=== PATIENT | female | born 1945 | race Caucasian/White ===

== ENCOUNTER 2017-10-07 13:44 | Outpatient (CLI) | payer MEDICARE | END 2017-10-07 13:45 | disposition home or self-care (01) | LOC: BICMAMMO 13:44 | PROVIDERS: ATTEND Obstetrics & Gynecology | DX: Z12.31 Encounter for screening mammogram for malignant neoplasm of breast (principal); R92.1 Mammographic calcification found on diagnostic imaging of breast; Z85.3 Personal history of malignant neoplasm of breast | CPT/HCPCS: 77063; 77067 ==

== ENCOUNTER 2017-11-12 08:40 | Outpatient (CLI) | payer MEDICARE ==
--- NOTE | 2017-11-12 11:33 | CT ---
CONTRAST ENHANCED CTA OF NECK: HISTORY: Primary hypertension, atherosclerotic disease. Patient with a history of carotid bruit. FINDINGS: Contrast-enhanced CTA of carotid arteries performed. Two-D and 3D reconstructed images performed on an independent 3D work station. 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 This forms a vascular sling which has the right subcla vian artery pass posterior to the esophagus and trachea between these structures and the thoracic spi ne. The right subclavian artery then travels laterally. The right and left common carotid arteries have a common origin. There is some atherosclerotic plaqu e in the origin of the left CCA. Mild but not significant degree of calcification is seen along the course of the left CCA. There is atherosclerotic plaque in the origin of the left ICA approximately 20-30%, but no evidence of high-grade left ICA disease. The right common carotid artery is patent without evidence of significant disease. There is an area of high-grade stenosis approximately 80-90% in the proximal portion of the right ICA. Flow is seen, however, distally in the right ICA extending intracranially. The left subclavian artery has origin from the aortic arch. This left subclavian artery is densely c alcified and either completely occluded or nearly so due to the extensive proximal left subclavian or igin calcifications. Flow is seen in the distal left subclavian artery. There may be occlusion of t he left vertebral artery as contrast is not seen in the proximal portion. In the distal aspect of th e left vertebral artery, contrast is present. Good flow is seen in the right vertebral artery, which is clearly patent. Also noted are extensive vascular calcifications in the left anterior descending coronary artery. Th e patient has had a previous sternotomy and CABG with flow present in the transferred SAMAYOA artery. IMPRESSION: 1. High-grade proximal right ICA stenosis. 2. High-grade or occluded left subclavian artery. 3. 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 4. Findings suggesting occlusion of the left vertebral artery. POS: [facility]
[2017-11-12] MEDS ORDERED: Iopamidol 370 76% 100 ML VIAL ONE (11:40)
== END 2017-11-12 08:41 | disposition home or self-care (01) ==
LOC: CT 08:40
PROVIDERS: ATTEND Internal Medicine Cardiovascular Disease
DX: I65.21 Occlusion and stenosis of right carotid artery (principal); I74.2 Embolism and thrombosis of arteries of the upper extremities; I25.119 Atherosclerotic heart disease of native coronary artery with unspecified angina pectoris; I10 Essential (primary) hypertension
CPT/HCPCS: 70498; 82565

== ENCOUNTER 2017-11-27 05:46 | Day surgery (SDC) | payer MEDICARE ==
[2017-11-26 11:22] VITALS: BMI 39.6
[2017-11-27] MEDS ORDERED: Lidocaine 1% (PF) 30 ML VIAL ONE (07:35)
[2017-11-27] MEDS ORDERED: Fentanyl 100 MCG/2 ML VIAL ONE (08:13)
[2017-11-27] MEDS ORDERED: Midazolam HCl 2 mg/2 ml Vial ONE (08:13)
[2017-11-27] MEDS ORDERED: Iopamidol 370 76% 100 ML VIAL ONE (15:31)
== END 2017-11-27 12:20 | disposition home or self-care (01) ==
LOC: CCL 05:46
PROVIDERS: ATTEND Internal Medicine Cardiovascular Disease
DX: I25.118 Atherosclerotic heart disease of native coronary artery with other forms of angina pectoris (principal); I10 Essential (primary) hypertension; I65.23 Occlusion and stenosis of bilateral carotid arteries; Z79.899 Other long term (current) drug therapy; Z79.82 Long term (current) use of aspirin; Z88.8 Allergy status to other drugs, medicaments and biological substances
CPT/HCPCS: 93459; 93567; C1769; 99152; 99153; J1644; J2001; J2250; J3010

== ENCOUNTER 2017-12-29 09:49 | Outpatient (CLI) | payer MEDICARE ==
[2017-12-29 11:40] LABS: Hemoglobin 15.6 g/dL (12.0-16.0); Mean Corpuscular HGB CONC 32.9 g/dL (32.0-36.0); Mean Corpuscular Volume 84.9 fL (78.0-98.0); Mean Platelet Volume 8.7 fL (7.4-10.4); Platelet Count 150 thou/uL (130-400); RBC Distribution Width 13.3 % (11.5-14.5); Red Blood Cell (RBC) Count 5.59 mill/uL (4.20-5.40); White Blood Cell (WBC) Count 5.8 thou/uL (4.8-10.8)
== END 2017-12-29 09:50 | disposition home or self-care (01) ==
LOC: LABBT 09:49
PROVIDERS: ATTEND Thoracic Surgery (Cardiothoracic Vascular Surgery)
DX: Z01.818 Encounter for other preprocedural examination (principal); I65.29 Occlusion and stenosis of unspecified carotid artery
CPT/HCPCS: 85027; 93005; 93010

== ENCOUNTER 2017-12-29 10:30 | Inpatient (IN) | payer MEDICARE ==
[2017-12-30] MEDS ORDERED: CEFAZOLIN/Water 2 GM/20 ML SYRINGE ONE (06:09)
[2017-12-30] MEDS ORDERED: Bupivacaine HCl 0.25%/Epi 0.0005/PF 10 ML VIAL FS ONE (06:25)
[2017-12-30] MEDS ORDERED: Heparin 5,000 UNITS/ML VIAL ONE (06:25)
[2017-12-30] MEDS ORDERED: Protamine Sulfate 50 MG/5 ML VIAL ONE (06:25)
[2017-12-30] MEDS ORDERED: Fentanyl 100 MCG/2 ML VIAL ONE (06:43)
[2017-12-30] MEDS ORDERED: Phenylephrine HCL 10 MG/ML VIAL ONE (06:44)
[2017-12-30 07:06] LABS: Anion Gap 14 mmol/L (10-20); BUN (Urea Nitrogen) 16 mg/dL (9.8-20.1); Calc. Creatinine Clearance 107 mL/min (70-130); Calcium 10.1 mg/dL (7.8-10.44); Carbon Dioxide 28 mmol/L (23-31); Chloride 100 mmol/L (98-107); Estimated GFR-MDRD 71; Glucose 110 mg/dL (83-110); Potassium 3.9 mmol/L (3.5-5.1); Sodium 138 mmol/L (136-145)
[2017-12-30] MEDS ORDERED: Ondansetron HCl/PF 4 MG/2 ML Vial IVP PRN ×2 (09:11→11:57)
[2017-12-30] MEDS ORDERED: Promethazine HCl 25 MG/ML VIAL SLOW IVP PRN (09:11)
[2017-12-30] MEDS ORDERED: Promethazine HCl 25 MG/ML VIAL IM PRN ×2 (09:11→11:57)
[2017-12-30] MEDS ORDERED: Acetaminophen 325 MG TAB PO PRN (11:57)
[2017-12-30] MEDS ORDERED: Fentanyl 100 MCG/2 ML VIAL SLOW IVP PRN (11:57)
[2017-12-30] MEDS ORDERED: hydrALAZINE 20 MG/ML VIAL SLOW IVP PRN (11:57)
[2017-12-30] MEDS ORDERED: Sodium Chloride 0.9% 1,000 ML IV SCH (11:57)
[2017-12-30] MEDS ORDERED: Phenylephrine 10 MG/NS 250 ML 250 ML IVPB PRN (11:57)
[2017-12-30] MEDS ORDERED: HYDROcodone/Acetaminophen 5/325 mg Tablet PO PRN ×2 (11:57)
[2017-12-30] MEDS ORDERED: cloNIDine 0.2 MG TAB PO PRN (11:57)
[2017-12-30] MEDS ORDERED: niCARdipine HCl 25 MG in Sodium Chloride 0.9% 250 ML 240 ML IVPB PRN (11:57)
[2017-12-30] MEDS ORDERED: Hydrochlorothiazide 25 MG TAB PO SCH (12:15)
[2017-12-30] MEDS ORDERED: Lisinopril 20 MG TAB PO SCH ×2 (12:15→21:00)
[2017-12-30] MEDS ORDERED: Clopidogrel Bisulfate 75 MG TAB PO SCH (12:15)
[2017-12-30 12:42] VITALS: BMI 39.1
[2017-12-30] MEDS: CEFAZOLIN/Water 2 GM/20 ML SYRINGE SLOW IVP SCH ×2 (14:32→22:38)
[2017-12-30] MEDS ORDERED: Ondansetron HCl/PF 4 MG/2 ML Vial ONE (19:53)
[2017-12-30] MEDS ORDERED: PROPOFOL 200 MG/20 ML VIAL ONE (19:53)
[2017-12-30] MEDS ORDERED: Heparin 10,000 UNITS/ 10 ML VIAL ONE (19:53)
[2017-12-30] MEDS ORDERED: Lidocaine 1% PF 5 ML VIAL ONE (19:53)
[2017-12-30] MEDS ORDERED: Dexamethasone 20 MG/5 ML VIAL ONE (19:53)
[2017-12-30] MEDS ORDERED: Vecuronium 10 MG VIAL ONE (19:53)
[2017-12-30] MEDS ORDERED: Glycopyrrolate 0.2 MG/ML 5 ML SYRINGE ONE (19:53)
[2017-12-31] MEDS: CEFAZOLIN/Water 2 GM/20 ML SYRINGE SLOW IVP SCH (05:34)
[2017-12-31 07:10] VITALS: TEMP 97.8
[2017-12-31 07:23] VITALS: BP 142/62
--- NOTE | 2017-12-31 07:49 | DIS ---
DATE OF DISCHARGE: 12/31/2017 HOSPITAL COURSE: The patient was admitted on 12/30/2017 and underwent a right carotid endarterectomy . Postoperative course was uneventful. She will be discharged home to follow up with me in 2 weeks with anticipation for a left carotid subclavian bypass at that time. Discharge and followup instruct ions have been given.
[2017-12-31] MEDS ORDERED: Hydrochlorothiazide 25 MG TAB PO SCH (09:00)
[2017-12-31] MEDS ORDERED: Clopidogrel Bisulfate 75 MG TAB PO SCH (09:00)
--- NOTE | 2018-01-01 10:10 | OP ---
DATE OF PROCEDURE: 12/30/2017 PREOPERATIVE DIAGNOSIS: Right carotid stenosis. PROCEDURE PERFORMED: Right carotid endarterectomy with bovine patch angioplasty. SURGEON: Mason Lee M.D. ANESTHESIA: General. ESTIMATED BLOOD LOSS: Less than 50. PROCEDURE IN DETAIL: After adequate anesthesia had been obtained, ultrasound was used to locate the carotid bulb and the patient was then prepped and draped. The incision was then made and sternocleid omastoid muscle rotated laterally. Common internal and external carotid arteries were identified. T he patient was given 7500 units of heparin and ACT levels were adequate. Following this, the patient had clamps applied following which the shunt was placed and endarterectomy was performed. After goo d tapering distally, the area was thoroughly irrigated and a bovine pericardial patch was used to darrell se the arteriotomy. Prior to completing the suture line, the shunt was removed, vessels back flushed and forward flushed and flow restored up the external and then internal carotid artery. Heparin was partially reversed with protamine and after obtaining good hemostasis, the wound was irrigated and c losed in layers. The patient is to be taken to the ICU in guarded condition.
== END 2017-12-31 08:45 | disposition home or self-care (01) | DRG 39 ==
LOC: SURG A 12-30 05:35 → CCU 12-30 13:26
PROVIDERS: ADMIT Thoracic Surgery (Cardiothoracic Vascular Surgery); ATTEND Thoracic Surgery (Cardiothoracic Vascular Surgery)
PROC: 03CH0ZZ Extirpation of Matter from Right Common Carotid Artery, Open Approach (ICD-10-PCS; principal; 2017-12-30)
PROC: 03UH0KZ Supplement Right Common Carotid Artery with Nonautologous Tissue Substitute, Open Approach (ICD-10-PCS; 2017-12-30)
DX: I65.21 Occlusion and stenosis of right carotid artery (principal); I10 Essential (primary) hypertension; I25.10 Atherosclerotic heart disease of native coronary artery without angina pectoris; E78.2 Mixed hyperlipidemia; Z79.82 Long term (current) use of aspirin; Z79.899 Other long term (current) drug therapy; Z95.1 Presence of aortocoronary bypass graft; Z96.653 Presence of artificial knee joint, bilateral
CPT/HCPCS: 80048; 85027; 93005; 93010; J1100; J1642; J1644; J2001; J2370; J2405; J2704; J2720; J3010

== ENCOUNTER 2018-02-02 06:12 | Inpatient (IN) | payer MEDICARE ==
[2018-02-02] MEDS ORDERED: CEFAZOLIN/Water 2 GM/20 ML SYRINGE ONE (06:21)
[2018-02-02] MEDS ORDERED: Protamine Sulfate 50 MG/5 ML VIAL ONE (06:28)
[2018-02-02] MEDS ORDERED: Heparin 5,000 UNITS/ML VIAL ONE (06:28)
[2018-02-02 06:46] LABS: #Eosinphils 0.3 thou/uL (0.0-0.7); #Lymphocytes 1.2 thou/uL (1.20-3.40); #Monocytes 0.3 thou/uL (0.11-0.59); #Neutrophils 2.4 thou/uL (1.40-6.50); %Basophils 0.9 % (0.0-1.0); %Eosinophils 7.7 % (0.0-10.0); %Lymphocytes 27.8 % (21.0-51.0); %Monocytes 7.5 % (0.0-10.0); %Neutrophils 56.2 % (42.0-75.0); Hemoglobin 15.1 g/dL (12.0-16.0); Mean Corpuscular HGB CONC 33.3 g/dL (32.0-36.0); Mean Corpuscular Hemoglobin 28.5 pg (27.0-31.0); Mean Corpuscular Volume 85.5 fL (78.0-98.0); Mean Platelet Volume 7.5 fL (7.4-10.4); Platelet Count 235 thou/uL (130-400); RBC Distribution Width 13.2 % (11.5-14.5); Red Blood Cell (RBC) Count 5.28 mill/uL (4.20-5.40); White Blood Cell (WBC) Count 4.3 thou/uL (4.8-10.8)
[2018-02-02 07:05] LABS: Anion Gap 16 mmol/L (10-20); BUN (Urea Nitrogen) 12 mg/dL (9.8-20.1); Calc. Creatinine Clearance 103 mL/min (70-130); Calcium 9.6 mg/dL (7.8-10.44); Carbon Dioxide 23 mmol/L (23-31); Chloride 107 mmol/L (98-107); Estimated GFR-MDRD 71; Glucose 116 mg/dL (83-110); Potassium 3.9 mmol/L (3.5-5.1); Sodium 142 mmol/L (136-145)
[2018-02-02] MEDS ORDERED: Bupivacaine/Epinephrine 0.25% 30 ML VIAL ONE (07:06)
[2018-02-02] MEDS ORDERED: Ketamine 50 MG/ML VIAL ONE (07:22)
[2018-02-02] MEDS ORDERED: Fentanyl 100 MCG/2 ML VIAL ONE (07:23)
[2018-02-02] MEDS ORDERED: Ondansetron HCl/PF 4 MG/2 ML Vial IVP PRN ×2 (10:55→11:04)
[2018-02-02] MEDS ORDERED: Promethazine HCl 25 MG/ML VIAL IM PRN (10:55)
[2018-02-02] MEDS ORDERED: Promethazine HCl 25 MG/ML VIAL SLOW IVP PRN ×2 (10:55→11:04)
[2018-02-02] MEDS ORDERED: Nitroglycerin 50 MG/250 ML BOT 250 ML ONE (11:00)
[2018-02-02] MEDS ORDERED: Fentanyl 100 MCG/2 ML VIAL SLOW IVP PRN ×2 (11:04)
[2018-02-02] MEDS ORDERED: Acetaminophen 325 MG TAB PO PRN (11:04)
[2018-02-02] MEDS ORDERED: HYDROcodone/Acetaminophen 5/325 mg Tablet PO PRN ×2 (11:04)
[2018-02-02] MEDS ORDERED: niCARdipine HCl 25 MG in Sodium Chloride 0.9% 250 ML 240 ML IVPB PRN (11:04)
[2018-02-02] MEDS ORDERED: Phenylephrine 10 MG/NS 250 ML 250 ML IVPB PRN (11:04)
--- NOTE | 2018-02-02 11:06 | OP ---
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 . PROCEDURE: Left subclavian carotid bypass with 8 mm thin-walled ringed Micro-Trev. SURGEON: Mason Lee M.D. ANESTHESIA: General. ESTIMATED BLOOD LOSS: 150 mL. PROCEDURE IN DETAIL: After adequate anesthesia had been obtained, a shoulder roll was placed and loli browne was turned to the left, although she had rather stiff neck and shoulders and not much turning was a vailable. She was prepped and draped and a curvilinear incision was made about 1 cm cephalad to the clavicle. Platysma was divided as was the clavicular head of the sternocleidomastoid muscle. The latif perficial cutaneous skin nerve anterior to the scalene fat pad was partially divided. The scalene fa t pad was then mobilized and dissection was then carried down posterior to the jugular vein isolating the carotid artery, avoiding the vagus nerve. Following this, the anterior scalene muscle was ident ified and there was only one small nerve anterior to it and it was preserved, although did not appear to be the normal size of the phrenic nerve. The scalene muscle was then carefully divided exposing the subclavian artery. Following heparinization, clamps were applied to the carotid artery and an en d-to-side anastomosis with running 6-0 Prolene suture was performed to the side of the carotid artery with the Micro-Trev graft. Glue was then used on the suture line and vessels were flushed and flow re stored up the carotid. Graft was brought posterior to the jugular vein. Subclavian artery clamps we re applied, arteriotomy performed, and a running 6-0 Prolene suture was then used to perform the Micro -Trev to subclavian artery anastomosis using glue on this suture line too. Once flow was restored, he kacey was reversed, the patient had been given 7500 units of heparin initially. Oozing through the Micro-Trev needle holes persisted for about one half an hour and finally this was controlled. The scal steve fat pad was then laid back over the graft. Attempts at reapproximating the clavicular head of th e sternocleidomastoid muscle were unsuccessful. Platysma and subcutaneous tissue was then closed wit h a running Vicryl suture over a small [place] drain and the skin was closed. The patient tolerated the procedure.
[2018-02-02] MEDS ORDERED: niCARdipine HCl 25 MG in Sodium Chloride 0.9% 250 ML 240 ML IVPB SCH (11:15)
[2018-02-02] MEDS: Sodium Chloride 0.9% 1,000 ML IV SCH (12:45)
[2018-02-02 12:51] VITALS: BMI 37.7
[2018-02-02] MEDS: CEFAZOLIN/Water 2 GM/20 ML SYRINGE SLOW IVP SCH ×2 (13:43→21:54)
[2018-02-02] MEDS ORDERED: Metoprolol Tartrate 5 MG/5 ML VIAL ONE (13:52)
[2018-02-02] MEDS ORDERED: Glycopyrrolate 0.2 MG/ML 5 ML SYRINGE ONE (13:52)
[2018-02-02] MEDS ORDERED: Lidocaine 1% PF 5 ML VIAL ONE (13:52)
[2018-02-02] MEDS ORDERED: PROPOFOL 200 MG/20 ML VIAL ONE (13:52)
[2018-02-02] MEDS ORDERED: Ondansetron HCl/PF 4 MG/2 ML Vial ONE (13:52)
[2018-02-02] MEDS ORDERED: Dexamethasone 20 MG/5 ML VIAL ONE (13:52)
[2018-02-02] MEDS ORDERED: PHENYLEPHRINE-NS 100 MCG/ML 10 ML SYRINGE ONE (13:52)
[2018-02-02] MEDS ORDERED: Heparin 10,000 UNITS/ 10 ML VIAL ONE (13:52)
[2018-02-03] MEDS: CEFAZOLIN/Water 2 GM/20 ML SYRINGE SLOW IVP SCH (05:51)
--- NOTE | 2018-02-03 07:18 | DIS ---
HOSPITAL COURSE: The patient was admitted and underwent a left carotid subclavian bypass with 8-mm r ing into the Mikado-Trev graft. Postoperatively, she did well with some mild hypertension. She had a d rain left in at the time of surgery that was removed on the afternoon of surgery with a moderate amou nt of serosanguineous drainage. She had some moderate swelling in her supraclavicular area at the ti me of discharge. She had no complaints except a slight sore throat. She had a good radial pulse in her left wrist, which was not present preop. She will be discharged today to resume her aspirin, mag nesium, Zetia, CoQ10 as well as to begin lisinopril 10 b.i.d. No scripts have been written. Dischar ge and followup instructions were given.
[2018-02-03] MEDS: Sodium Chloride 0.9% 1,000 ML IV SCH (07:47)
[2018-02-03 08:01] VITALS: TEMP 98.5
[2018-02-03] MEDS ORDERED: Clopidogrel Bisulfate 75 MG TAB PO SCH (09:00)
== END 2018-02-03 08:35 | disposition home or self-care (01) | DRG 254 ==
LOC: SURG A 06:12 → CCU 12:55
PROVIDERS: ADMIT Thoracic Surgery (Cardiothoracic Vascular Surgery); ATTEND Thoracic Surgery (Cardiothoracic Vascular Surgery)
PROC: 03140JK Bypass Left Subclavian Artery to Left Extracranial Artery with Synthetic Substitute, Open Approach (ICD-10-PCS; principal; 2018-02-02)
DX: I70.8 Atherosclerosis of other arteries (principal); I25.10 Atherosclerotic heart disease of native coronary artery without angina pectoris; I10 Essential (primary) hypertension; E78.2 Mixed hyperlipidemia; Z79.02 Long term (current) use of antithrombotics/antiplatelets; Z79.82 Long term (current) use of aspirin; Z79.899 Other long term (current) drug therapy; Z95.1 Presence of aortocoronary bypass graft; Z96.653 Presence of artificial knee joint, bilateral
CPT/HCPCS: 36415; 80048; 85025; 86850; 86900; 86901; J1100; J1642; J1644; J2001; J2405; J2704; J2720; J3010; J7050

== ENCOUNTER 2018-04-01 14:32 | Observation (INO) | payer MEDICARE ==
--- NOTE | 2018-04-01 16:26 | CT ---
CT HEAD: Date: 04/01/18 HISTORY: Syncopal episode, dizziness, and headache. Tingling in legs. COMPARISON: None available. FINDINGS: There is no evidence of a hemorrhage, acute infarction, mass effect, or midline shift. A few subtle s cattered low density areas are seen in the periventricular white matter which are nonspecific but may be reflective of mild chronic small vessel ischemic changes. There is nonspecific punctate calcifica tion seen in the posterior right frontal lobe. There is no evidence of a hemorrhage, acute infarction , mass effect, or midline shift. The ventricular system is normal in size, shape, and position. Mucosal thickening is seen throughout the ethmoidal air cells and visualized bilateral maxillary antr a. Mastoid air cells are clear. Calvarial structures have a normal appearance. IMPRESSION: No acute intracranial abnormality is demonstrated. POS: [facility]
[2018-04-01 17:35] LABS: #Eosinphils 0.1 thou/uL (0.0-0.7); #Lymphocytes 1.2 thou/uL (1.20-3.40); #Monocytes 0.4 thou/uL (0.11-0.59); %Basophils 0.5 % (0.0-1.0); %Eosinophils 1.6 % (0.0-10.0); %Lymphocytes 13.4 % (21.0-51.0); %Monocytes 4.8 % (0.0-10.0); %Neutrophils 79.7 % (42.0-75.0); Hemoglobin 14.9 g/dL (12.0-16.0); Mean Corpuscular HGB CONC 32.4 g/dL (32.0-36.0); Mean Corpuscular Volume 86.5 fL (78.0-98.0); Mean Platelet Volume 8.3 fL (7.4-10.4); Platelet Count 238 thou/uL (130-400); RBC Distribution Width 12.4 % (11.5-14.5); Red Blood Cell (RBC) Count 5.32 mill/uL (4.20-5.40); White Blood Cell (WBC) Count 8.8 thou/uL (4.8-10.8)
[2018-04-01 18:00] LABS: ALT (SGPT) 29 U/L (8-55); AST (SGOT) 33 U/L (5-34); Albumin 4.1 g/dL (3.4-4.8); Alkaline Phosphatase 75 U/L (40-150); Anion Gap 15 mmol/L (10-20); BUN (Urea Nitrogen) 18 mg/dL (9.8-20.1); Bilirubin, Total 0.6 mg/dL (0.2-1.2); Calc. Creatinine Clearance 0 mL/min (70-130); Calcium 9.2 mg/dL (7.8-10.44); Carbon Dioxide 21 mmol/L (23-31); Chloride 106 mmol/L (98-107); Estimated GFR-MDRD 84; Globulin 3.7 g/dL (2.4-3.5); Glucose 106 mg/dL (83-110); Potassium 4.3 mmol/L (3.5-5.1); Protein, Total 7.8 g/dL (6.0-8.3); Sodium 138 mmol/L (136-145)
[2018-04-01 18:03] LABS: CKMB 1.2 ng/mL (0-6.6); Troponin I Less than 0.010 ng/mL (< 0.028)
[2018-04-01] MEDS ORDERED: Acetaminophen 325 MG TAB PO PRN (19:16)
[2018-04-01] MEDS ORDERED: Nitroglycerin 0.4 MG TAB (25 Tab Bottle) PO PRN (19:16)
[2018-04-01 19:30] VITALS: BMI 37.7
--- NOTE | 2018-04-01 19:44 | HP ---
DATE OF ADMISSION: 04/01/2018 PRIMARY CARE PHYSICIAN: Faby Aggarwal M.D. PRIMARY MATERIALS MANAGEMENT SUPERVISOR: Dr. Cyr. CHIEF COMPLAINT: Syncopal episode. HISTORY OF PRESENT ILLNESS: Patient is a 72-year-old female with coronary artery disease, status pos t CABG, hypertension, dyslipidemia, and carotid artery disease who presented to the emergency room af ter a syncopal episode earlier today while she was at home. The above episode happened around 1:30 p .m. She was sitting at that time. Without any warning, she lost consciousness for approximately a m inute or so. The witnessed the above event. Her bilateral lower extremity had some numbness and tingling during the above episode. She was diaphoretic and pale during the above episode. Afte r the episode, she regained consciousness without any confusion. She had some nausea that improved. Forty-five minutes later, she felt back to her baseline. No chest pain, palpitations, double vision , blurring of vision, facial asymmetry, weakness, numbness in one extremity more than the other repor dylan. Patient reported some headache during the above episode. Her checked her blood pressur e after the episode which was in 130s to 140s. PAST MEDICAL HISTORY: 1. Coronary artery disease, status post CABG in 2001 in [place]. 2. Hypertension. 3. Dyslipidemia. 4. Carotid artery stenosis. PAST SURGICAL HISTORY: Hysterectomy in 1971, cholecystectomy in 1988, mastectomy in 2004, CABG in 03 06, right knee replacement in 2012, left knee replacement in 2013, right carotid endarterectomy in . Recent left subclavian carotid bypass by Dr. Lee. ALLERGIES: Patient is allergic to STATINS. CURRENT HOME MEDICATIONS: Lisinopril 10 mg twice a day, aspirin 81 mg daily, Plavix 75 mg daily, Zet ia 10 mg q.p.m., Imdur 30 mg daily that was started 2 weeks ago. SOCIAL HISTORY: Patient currently lives at home with her . No smoking, alcohol or drug use. She is FULL CODE, makes her own decisions with the help of her family. REVIEW OF SYSTEMS: The following complete review of systems was negative, unless otherwise mentioned in the HPI or below: Constitutional: Weight loss or gain, ability to conduct usual activities. Sk in: Rash, itching. Eyes: Double vision, pain. ENT/Mouth: Nose bleeding, neck stiffness, pain, te nderness. Cardiovascular: Palpitations, dyspnea on exertion, orthopnea. Respiratory: Shortness of breath, wheezing, cough, hemoptysis, fever or night sweats. Gastrointestinal: Poor appetite, abdom inal pain, heartburn, nausea, vomiting, constipation, or diarrhea. Genitourinary: Urgency, frequenc y, dysuria, nocturia. Musculoskeletal: Pain, swelling. Neurologic/Psychiatric: Anxiety, depressio n. Allergy/Immunologic: Skin rash, bleeding tendency. FAMILY HISTORY: Positive for heart disease. PHYSICAL EXAMINATION: VITAL SIGNS: Temperature 97.5, respiration 18, pulse rate of 68, blood pressure 171/73 with O2 satur ation 98% on room air. GENERAL: A 72-year-old female in no apparent distress. Denies any chest pain. HEENT: Head atraumatic, normocephalic. Sclerae are anicteric. Moist mucous membrane, no oral lesio n. NECK: Supple, no JVD, no carotid bruit. LUNGS: Clear to auscultation bilaterally, no wheezing, rales or rhonchi. HEART: S1, S2 present. Regular rate and rhythm. No murmur, rubs, or gallops appreciated. ABDOMEN: Soft, nontender, bowel sounds present. EXTREMITIES: No edema or calf tenderness. MUSCULOSKELETAL: No joint swelling or tenderness. PERIPHERAL VASCULAR: Radial pulses palpable bilaterally and equal. NEUROLOGIC: Grossly nonfocal, moves all four extremities. PSYCHIATRIC: Alert, awake, oriented x3. LABORATORY AND X-RAY FINDINGS: Troponin negative. WBC 8.8 with hemoglobin 14.9, hematocrit 46, plat elet 238, BUN 18, creatinine 0.69. Chest x-ray by my review was negative for infiltrate. CT scan of the brain by my review was negative for acute findings. EKG by my review showed sinus rhythm with frequent PVCs and right bundle branch block. IMPRESSION: 1. Syncope, suspected cardiogenic. 2. Hypertension. 3. Coronary artery disease, status post coronary artery bypass graft. 4. Hyperlipidemia. 5. Statin allergy. 6. Chronic kidney disease stage 2. PLAN: The patient will be monitored on the telemetry unit. We will keep her n.p.o. past midnight. Continue aspirin, Plavix, Imdur and lisinopril. We will check orthostatic vitals in a.m. Gentle hyd ration. The patient had a cardiac catheterization in November of this year. We will obtain echocardiogr am if not done at Dr. Cyr's office. Plan of care was discussed with the patient in detail. She stated understanding.
[2018-04-01] MEDS: Lisinopril 10 MG TAB PO SCH (21:03)
[2018-04-01] MEDS: Ezetimibe 10 MG TAB PO SCH (21:03)
[2018-04-01 21:25] LABS: Troponin I Less than 0.010 ng/mL (< 0.028)
[2018-04-01] MEDS: Sodium Chloride 0.9% 1,000 ML IV SCH (22:35)
[2018-04-02 01:13] LABS: Troponin I Less than 0.010 ng/mL (< 0.028)
--- NOTE | 2018-04-02 07:42 | RAD ---
PORTABLE AP CHEST: Date: 04/01/18 HISTORY: Chest pain and syncopal episode. COMPARISON: None available. FINDINGS: Postsurgical changes related to CABG are noted. Cardiac silhouette is magnified by projection, but is probably mildly enlarged. The pulmonary vasculature is within normal limits. There is mild elevation of the left hemidiaphragm with minimal volume loss at the left lung base. The lungs are otherwise cl ear. Vascular calcifications seen in thoracic aorta. Degenerative changes noted of the spine. IMPRESSION: 1. No acute cardiopulmonary process. 2. Mild cardiomegaly without overt CHF. POS: [facility]
[2018-04-02] MEDS: Lisinopril 10 MG TAB PO SCH ×2 (09:46→20:21)
[2018-04-02] MEDS: Clopidogrel Bisulfate 75 MG TAB PO SCH (09:46)
[2018-04-02] MEDS: Ubidecarenone 50 MG CAP PO SCH (09:47)
[2018-04-02] MEDS: Sodium Chloride 0.9% 1,000 ML IV SCH (09:49)
[2018-04-02] MEDS ORDERED: Lidocaine 1% w/Epinephrine 1:100K 30 ML VIAL ONE (11:56)
--- NOTE | 2018-04-02 13:01 | ADD-CON ---
ADDENDUM DATE OF ADMISSION: 04/01/2018 DATE OF CONSULTATION: 04/02/2018 INDICATION FOR CONSULTATION: A 72-year-old female with syncope. HISTORY OF PRESENT ILLNESS: This is a very pleasant 72-year-old female who has undergone bypass surg kunal several years ago and had a repeat cardiac catheterization earlier this year and was found to hav e patent grafts. Her ejection fraction has been normal. She was sitting at home today in front of h er computer, she started feeling somewhat badly. She called her and by the time he got there , she ultimately had a syncopal episode. She was out for a couple minutes. When she woke up, she mcmahon d actually been having a headache. She arrived here, she has had no further significant bradycardias or other arrhythmias. She does have a right bundle branch block, which apparently is not new. Base d on these findings, she most likely will need to undergo a LINQ implant to determine whether or not she has had any other evidence or any other indication for these syncopal episodes. She appears to b e in sinus rhythm with the right bundle branch block and there has been no pauses noted on the EKG or the monitor since her admission. For the remainder of her past medical history, social history, family history, medications, and [facility], please refer to the note dictated by the nurse practitioner. PHYSICAL EXAMINATION: GENERAL: Reveals a well-developed, well-nourished female who is in no acute distress. She is alert and oriented, very pleasant lady. VITAL SIGNS: She is afebrile. Blood pressure is slightly elevated at 164/71, previous is 143/61, he art rate is in the 60s-70s, it shows sinus rhythm. Respiratory rate is 16. HEENT: Unremarkable. CHEST: Clear to auscultation without rales, rhonchi or wheezing. CARDIOVASCULAR: Exam reveals a regular rate and rhythm with normal S1, S2. I cannot hear an S3 nor an S4. There were no significant murmurs, heaves, thrills, bruits or rubs. ABDOMEN: Shows obesity with positive bowel sounds. No organomegaly or masses are noted. Femoral pu lses are present. There is no lower extremity edema. NEUROLOGIC: She appears to be fully intact at this time. SKIN: Warm and dry. I have explained to her the indication for the LINQ, the implantable loop devic e, a loop recorder and she is agreeable to proceed today. She has not eaten that we will proceed as soon as possible on this afternoon to put this device in and hopefully she can be discharged to home tomorrow. IMPRESSION AND PLAN: 1. Syncopal episode of uncertain etiology 2. Coronary artery disease, which appears to be stable. Her recent cardiac catheterization was unre markable. Her other problems include hypertension. We may need to readjust her medications. I have reviewed her medications. She is taking lisinopril, isosorbide for her blood pressure. She is also on Plavix and aspirin. We will continue these medications once the LINQ device is implanted and hop efully she will be able to be discharged tomorrow morning. I have explained to her the risks of the procedure to include some bleeding or infection, otherwise there were no other significant complicati ons associated with implantation of the LINQ device.
--- NOTE | 2018-04-02 13:29 | PDOC.EVN ---
Event Note - Event Note Event Note: Pt seen and examined with Jennifer Han PA-C. I have seen and evaluated the pateint and reviewed all documentations. I agree with the findings and plan as outlined in his note admitted with short spell of unresponsiveness, suspect arrhythmia. seen by VERNA Faulkner to be implanted tomorrow and plan to discharge in AM
--- NOTE | 2018-04-02 14:47 | PDOC.PN ---
- Subjective Encounter Start Date: 04/02/18 Encounter Start Time: 14:45 Patient here for syncope, history of CAD s/p CABG and HTN. She denies chest pain or shortness of breath at this time. Cardiology services following and plan for LINQ, but no further changes to medications at this time. - Objective Resuscitation Status: Resuscitation Status FULL:Full Resuscitation MAR Reviewed: Yes Vital Signs & Weight: Vital Signs (12 hours) Temp Pulse Resp BP BP BP BP 04/02/18 13:06 97.6 F 59 L 18 148/67 H 04/02/18 11:22 98.2 F 64 20 186/84 H 04/02/18 07:25 98.3 F 65 16 178/77 H 169/78 H 164/71 H 04/02/18 04:12 98.1 F 72 18 138/63 Pulse Ox 04/02/18 13:06 93 L 04/02/18 11:22 94 L 04/02/18 07:25 95 04/02/18 04:12 93 L Weight Admit Weight 226 lb 12.8 oz Weight 226 lb 12.8 oz I&O: 04/01/18 04/02/18 04/03/18 06:59 06:59 06:59 Intake Total 360 Output Total 900 Balance -900 360 Result Diagrams: 04/01/18 17:22 04/01/18 17:22 Radiology Reviewed by me: Yes EKG Reviewed by me: Yes Phys Exam - Physical Examination Constitutional: NAD HEENT: PERRLA, moist MMs, sclera anicteric, oral pharynx no lesions, 2+ tonsils Neck: no nodes, no JVD, supple Respiratory: no wheezing, no rales, no rhonchi, clear to auscultation bilateral Cardiovascular: RRR, no significant murmur, no rub Gastrointestinal: soft, non-tender, no distention, positive bowel sounds Musculoskeletal: no edema, pulses present Neurological: non-focal, normal sensation, moves all 4 limbs Lymphatic: no nodes Psychiatric: normal affect, A&O x 3 Skin: no rash, normal turgor, cap refill <2 seconds Dx/Plan (1) CAD (coronary artery disease) Code(s): I25.10 - ATHSCL HEART DISEASE OF [place] CORONARY ARTERY W/O ANG PCTRS Status: Acute (2) Syncopal episodes Code(s): R55 - SYNCOPE AND COLLAPSE Status: Acute (3) Hypertension Code(s): I10 - ESSENTIAL (PRIMARY) HYPERTENSION Status: Acute (4) Chronic kidney disease (CKD) Code(s): N18.9 - CHRONIC KIDNEY DISEASE, UNSPECIFIED Status: Acute - Plan cont current plan of care, plan discussed w/ family, DVT proph w/SCDs * Cardiology services following with history of CAD and CABG. Will plan LINQ placement. * Continue ASA and plavix * Continue other home medications including imdur and lisinopril for BP control * Likely discharge tomorrow
--- NOTE | 2018-04-02 14:49 | CON ---
CARDIOLOGY CONSULTATION DATE OF CONSULTATION: 04/02/2018 PRIMARY CARE PHYSICIAN: Faby Aggarwal M.D. PRIMARY BOILER MAKER: Arnulfo Cyr MD REFERRING PHYSICIAN: Romeo Villasenor M.D. REASON FOR CARDIOLOGY CONSULTATION: History of syncope. HISTORY OF PRESENT ILLNESS: Ms. Beck is a 72-year-old female with a significant history o f coronary artery disease with history of CABG x2 in 2010, hypertension, hyperlipidemia. The patient presents to the emergency department for syncopal episode at home for about 5 minutes while she was using a computer in the chair around 1:30 p.m. on April 01, 2018. Prior to that episode, the patie nt started having severe headache and after waking up, she noticed that she has severe tingling to th e bilateral lower extremities. Prior that episode, she never has similar symptoms, headache, dizzine ss, lightheadedness, shortness of breath, or any cardiac complaints. 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 The patient had history of coronary artery disease with CABG x2 in 2010. Patient had echocardiogram done in November 2017 with EF of 60% to 65%, grade I diastolic dysfunction, mild tricuspid regurgitation and mild mitral valve regurgitation. The patient has cardiac catheterization done in November 2017, whic h shows patent CABG graft and also showing the patient had a left subclavian occlusion and status pos t left subclavian bypass in November 2017. The patient has the right carotid endarterectomy in November [address] Lee. The left carotid and subclavian bypass was done in January 2018. PAST MEDICAL HISTORY: Hypertension, hyperlipidemia, gag reflex, coronary artery disease. She has le ft breast cancer in 2011. PAST SURGICAL HISTORY: CABG x4 in 2010, left subclavian and carotid bypass by Dr. Lee in February 01, total hysterectomy, left mastectomy, cholecystectomy, bilateral knee replacements. FAMILY HISTORY: Patient's father due to myocardial infarction at age of 73. Other than pedro t the patient does not have any significant cardiac related medical history per family. SOCIAL HISTORY: Patient is , retired. She is being active at the farm every day. She has 3 children total, one of the child at the age of 6 months due to congenital problem. Two othe r children are healthy and living well. The patient denies ETOH, smoking or illicit drug abuse. She drinks tea once a while, she does not drink any caffeinated drink. REVIEW OF SYSTEMS: A 12-point review of systems was negative, unless otherwise mentioned in HPI or b elow. The patient denied blood in the stool or urine. She has chronic shortness of breath; however, after the patient underwent a CABG in 2010, the patient's shortness of breath improved. Also patient's reports that the patient snores, but does not stop breathing. The patient hoyt s not have apnea. PHYSICAL EXAMINATION: VITAL SIGNS: Orthostatic blood pressure supine 164/71, sitting 178/77, standing 169/78, pulse is 65 and in sinus rhythm, temperature 98.3, respiratory rate 16, O2 sat 95% on room air. GENERAL: The patient is alert, oriented x4, not in acute distress. HEAD: Normocephalic, atraumatic. EYES: Extraocular muscle movements are intact. ENT and MOUTH: Oral and nasal mucosa are moist without lesion. NECK: Supple. She has a healed scar to the right neck. No JVP. RESPIRATORY: Lungs are clear to auscultation bilaterally. CARDIOVASCULAR: Regular rhythm and rate. Normal S1, S2. There are no S3 or S4. Carotid pulses are present. Pulses in bilateral radial and bilateral lower extremities are present without bruit or th rill. No edema in the bilateral lower extremities. ABDOMEN: Nontender or mass to palpate. Bowel sounds are present. SKIN: Warm and dry. No bruise, , or lesion noted. MUSCULOSKELETAL: Patient able to move all extremities without difficulties. PSYCHIATRIC: Patient is alert and oriented x4, nonfocal. Mood is pleasant. LABORATORY DATA: WBC 8.8, hemoglobin 14.9, hematocrit 46.0, platelets of 238. Sodium 138, potassium 4.3, BUN 18, creatinine 1.68. AST 33, ALT 29. CK-MB 1.2. Troponin is negative x3. TSH 0.9243 and the patient's total cholesterol was 245, triglyceride 222. HDL 47, LDL 154. ALLERGIES: She is allergic to STATINS which cause severe nausea. HOME MEDICATIONS: CoQ10 200 mg once a day, omega 3 one capsule every day, vitamin C 500 every day, Zetia 10 mg once a d ay, Plavix 75 mg once a day, aspirin 81 mg once a day, lisinopril 10 mg twice a day, isosorbide monon itrate 30 mg once a day, Tumeric 1 tablet once a day, flaxseed 1 tablet once a day, magnesium 250 mg once a day. CT scan of brain showed no acute intracranial abnormalities. Chest x-ray showed no acute cardiopulmo nary process, mild cardiomegaly without overt CHF. ASSESSMENT AND PLAN: 1. Syncopal episode since the patient's CT brain, recent echocardiogram, and cardiac catheterization results are normal. The patient is going to undergo LINQ placement by Dr. Vaughan today. 2. Coronary artery main coronary artery disease with history of CABG x4 in 2010. The patient's cond ition is stable at this moment. We would like to continue current medication and continue to monitor on the telemetry. 3. Hypertension. The patient's blood pressure is elevated at this moment. We would like to adjust the medication as appropriate. 4. Hyperlipidemia. The patient's LDL in November 2017, was 154 due to history of coronary artery diseas e. The patient's LDL is supposed to be less than 70. Since the patient is allergic to STATIN medica tion, possible injectable cholesterol medication is suitable for this patient. We would like to defe r the decision to Dr. Cyr as outpatient. 5. History of right carotid endarterectomy and subclavian bypass to the left side. The patient's co ndition is stable at this moment. We would like to continue to monitor. Thank you very much for allowing the Cardiology service to participate in care of this patient. We w ill follow along the patient's care team and make further recommendations as appropriate.
[2018-04-02] MEDS: Ezetimibe 10 MG TAB PO SCH (20:21)
[2018-04-03 04:20] VITALS: TEMP 97.7
[2018-04-03] MEDS: Lisinopril 10 MG TAB PO SCH (08:20)
[2018-04-03] MEDS: Clopidogrel Bisulfate 75 MG TAB PO SCH (08:20)
[2018-04-03] MEDS: Ubidecarenone 50 MG CAP PO SCH (08:20)
--- NOTE | 2018-04-03 08:26 | PDOC.CTH ---
Cardiology Progress Note - Subjective The pt seen and examined. No overnight events. No cardiac complaints. - Objective Vital Signs Temp Pulse Resp BP Pulse Ox 04/03/18 07:51 97.7 F 72 18 155/74 H 93 L 04/03/18 04:18 97.7 F 65 18 133/64 95 04/02/18 23:38 97.9 F 66 15 160/70 H 94 L Admit Weight 226 lb 12.8 oz Weight 226 lb 12.8 oz 04/02/18 04/03/18 04/04/18 06:59 06:59 06:59 Intake Total 540 Output Total 900 1900 Balance -900 -1360 - Physical Examination General/Neuro: alert & oriented x3 Neck: no JVD present Heart: RRR Abdomen: soft Extremities: other: (No edema) - Telemetry Telemetry Rhythm: SB-SR 50-60s - Labs Result Diagrams: 04/01/18 17:22 04/01/18 17:22 Troponin/CKMB CK-MB (CK-2) 1.2 ng/mL (0-6.6) 04/01/18 17:22 Troponin I Less than 0.010 ng/mL (< 0.028) 04/02/18 00:22 - Assessment/Plan 1. S/p Syncopal episode with S/p LINQ placement on 04/02/18 - The site is CALVIN with SSS, no drainage or erythema. The pt denied any discomfort to the site. 2. CAD with hx of CABG x4 in 2010 - stable; on ASA and JOSE, but no BBlocker due to bradycarida; No statin due to allergy 3. HTN - stable 4. S/p Rt CEA in 11/2017 - 5. Lt Carodi-Subclavian bypass in 01/2018 - 6. Hyperlipidemia - LDL in 11/2017 was 154; Allegic to Statin; may start PCSK9 inhibitor as outpt. Defer to PCP/Dr Ger HARDY reviewed * From Cardiac standpoint, the pt is stable to D/c home. The pt will F/u with Dr Cyr's office within 10 days for site check and Hospital f/u. Review of Systems - Review of Systems Constitutional: reports: no symptoms reported EENTM: reports: no symptoms reported Respiratory: reports: no symptoms reported Cardiac (ROS): reports: no symptoms reported ABD/GI: reports: no symptoms reported : reports: no symptoms reported Musculoskeletal: reports: no symptoms reported Skin: reports: no symptoms reported
[2018-04-03 10:24] VITALS: BP 144/69
--- NOTE | 2018-04-03 15:37 | CCL ---
DATE OF PROCEDURE: 04/02/18 INDICATION FOR PROCEDURE: A 72-year-old female with syncope of undetermined etiology. She was advised to undergo an implantable loop recorder. This was performed today without difficulti es or complications. It was implanted after she was given some local lidocaine for anesthesia. She had good sensing on the device and she was implanted with the device. This is a Linq from [employer]. We will continue to monitor the patient transtelephonically. POS: YAHAIRA
--- NOTE | 2018-04-03 21:49 | DIS ---
DATE OF ADMISSION: 04/01/2018 DATE OF DISCHARGE: 04/03/2018 DISCHARGE DIAGNOSES: 1. Syncopal episode of unclear etiology, stable. 2. History of coronary artery disease status post coronary artery bypass graft. 3. Hypertension. 4. Chronic kidney disease, stable. CONSULTATION: Cardiology Services, Dr. Vaughan. PERTINENT LABORATORY AND DIAGNOSTIC FINDINGS: WBC 8.8, RBC 5.32, hemoglobin 14.9. Sodium 138, potas sium 4.3, alkaline phosphatase 75, AST 33, ALT 29. Troponin less than 0.010 x3, creatinine 0.69. Po rtable chest revealed no acute cardiopulmonary process with mild cardiomegaly without overt CHF. CT head displayed no acute abnormality demonstrated. HOSPITAL COURSE: Ms. Beck is a 72-year-old female who had presented to the ER with symptoms of sync ope. She has a history of CAD status post CABG, she underwent a recent heart catheterization earlier this year which demonstrated patent stents. She also has a history of hypertension and chronic kidn ey disease. She also has a history of dyslipidemia, which is stable. It was suspected that her sync ope was cardiogenic; however, with her history of CABG and CAD, Cardiology Services were consulted du [facility] course. Dr. Vaughan saw and evaluated the patient. She had recommended LINQ device. All risks and the benefits were thoroughly explained to her. She then underwent LINQ device implantatio n on 04/02/2018, she had tolerated this well without any acute complications. She had remained stabl e throughout the hospital course. She had remained on her home medications which included aspirin, P lavix, Imdur and lisinopril. Orthostatic vital signs were obtained; however, were unremarkable. Dr. Vaughan had determined that the patient is stable for discharge from a cardiac standpoint and did recom mend a follow up with Dr. Cyr in 10 days for recheck of site and for followup. Throughout the rem ainder of hospital course, she did remain asymptomatic, she denied chest pain, shortness of breath or abdominal pain. No further syncopal-like episodes. Vital signs remained stable. She was seen and examined prior to discharge. Care plan was thoroughly discussed with her, she had verbalized her und erstanding for discharge plan and was medically stable for discharge home 04/03/2018. DISCHARGE MEDICATIONS: 1. CoQ10 200 mg every morning. 2. Fish oil, omega 3, vitamin D 1 capsule every morning. 3. Vitamin C 500 mg every morning. 4. Ezetimibe 10 mg every evening. 5. Clopidogrel 75 mg every morning. 6. Aspirin 81 mg daily. 7. Lisinopril 10 mg twice daily. 8. Imdur 30 mg daily. 9. Turmeric 500 mg capsule daily. 10. Flaxseed 1 cap daily. 11. Magnesium 250 mg daily. FOLLOWUP. This patient is to follow up with her PCP, Dr. Faby Aggarwal in 1-2 weeks. She was also i nstructed to follow up with her primary healthcare liaison, Dr. Cyr in 10 days. CONDITION ON DISCHARGE: Stable. ACTIVITY: As tolerated. DIET: Healthy heart. CODE STATUS: FULL CODE. DISPOSITION: Home on 04/03/2018.
== END 2018-04-03 10:43 | disposition home or self-care (01) ==
LOC: ERS 14:32 → 2SW 19:09
PROVIDERS: ADMIT Internal Medicine; ATTEND Internal Medicine
PROC: 0JH632Z Insertion of Monitoring Device into Chest Subcutaneous Tissue and Fascia, Percutaneous Approach (ICD-10-PCS; principal; 2018-04-01)
DX: R55 Syncope and collapse (principal); I25.10 Atherosclerotic heart disease of native coronary artery without angina pectoris; E78.5 Hyperlipidemia, unspecified; I12.9 Hypertensive chronic kidney disease with stage 1 through stage 4 chronic kidney disease, or unspecified chronic kidney disease; N18.2 Chronic kidney disease, stage 2 (mild); I65.29 Occlusion and stenosis of unspecified carotid artery; Z79.02 Long term (current) use of antithrombotics/antiplatelets; Z79.82 Long term (current) use of aspirin; Z79.899 Other long term (current) drug therapy; Z88.8 Allergy status to other drugs, medicaments and biological substances; Z95.1 Presence of aortocoronary bypass graft; Z98.890 Other specified postprocedural states
CPT/HCPCS: 33282; 70450; 71045; 82553; 84484 ×3; 93005; 94760; 96360; 96361; 99285; C1732; C1764; G0378 ×2; 36415; 80053; 84443; 85025; J2001

== ENCOUNTER 2018-10-29 10:11 | Outpatient (CLI) | payer MEDICARE ==
--- NOTE | 2018-10-29 10:56 | MMO ---
Bilateral MAMMO Bilat Screen [facility]. CLINICAL HISTORY: Patient is 73 years old and is seen for screening. The patient has no family history of breast cancer. The patient has a history of right Excisional Biopsy at age 58 - malignant and left Mastectomy at age 58 - malignant. VIEWS: The views performed were: right craniocaudal with tomosynthesis; right mediolateral oblique; and right mediolateral oblique with tomosynthesis. FILMS COMPARED: The present examination has been compared to prior imaging studies performed at [facility] on 09/06/2012, 03/16/2014 and 06/28/2015, at [facility] on 10/07/2017, and at [facility] on 12/10/2016. MAMMOGRAM FINDINGS: There are scattered fibroglandular densities. There are stable benign appearing calcifications seen in the right breast. There are also vascular calcifications. There are no suspicious masses, suspicious calcifications, or new areas of architectural distortion. IMPRESSION: THERE IS NO MAMMOGRAPHIC EVIDENCE OF MALIGNANCY. A ROUTINE FOLLOW-UP MAMMOGRAM IN 1 YEAR IS RECOMMENDED. THE RESULTS OF THIS EXAM WERE SENT TO THE PATIENT. ACR BI-RADS Category 2 - Benign finding MAMMOGRAPHY NOTE: 1. A negative mammogram report should not delay a biopsy if a dominant of clinically suspicious mass is present. 2. Approximately 10% to 15% of breast cancers are not detected by mammography. 3. Adenosis and dense breasts may obscure an underlying neoplasm.
== END 2018-10-29 10:12 | disposition home or self-care (01) ==
LOC: BICMAMMO 10:11
PROVIDERS: ATTEND Obstetrics & Gynecology
DX: Z12.31 Encounter for screening mammogram for malignant neoplasm of breast (principal); Z85.3 Personal history of malignant neoplasm of breast; Z90.11 Acquired absence of right breast and nipple
CPT/HCPCS: 77063; 77067

== ENCOUNTER 2019-07-19 13:16 | Observation (INO) | payer MEDICARE ==
[2019-07-19 13:41] LABS: #Eosinphils 0.1 thou/uL (0.0-0.7); #Lymphocytes 0.6 thou/uL (1.20-3.40); #Monocytes 0.6 thou/uL (0.11-0.59); #Neutrophils 4.4 thou/uL (1.40-6.50); %Basophils 0.3 % (0.0-1.0); %Eosinophils 1.8 % (0.0-10.0); %Lymphocytes 9.8 % (21.0-51.0); %Monocytes 10.1 % (0.0-10.0); Hemoglobin 14.5 g/dL (12.0-16.0); Mean Corpuscular HGB CONC 34.3 g/dL (32.0-36.0); Mean Corpuscular Volume 84.5 fL (78.0-98.0); Mean Platelet Volume 8.5 fL (7.4-10.4); Platelet Count 193 thou/uL (130-400); RBC Distribution Width 12.7 % (11.5-14.5); Red Blood Cell (RBC) Count 4.99 mill/uL (4.20-5.40); White Blood Cell (WBC) Count 5.6 thou/uL (4.8-10.8)
[2019-07-19 14:02] LABS: ALT (SGPT) 17 U/L (8-55); AST (SGOT) 20 U/L (5-34); Albumin 4.2 g/dL (3.4-4.8); Alkaline Phosphatase 64 U/L (40-110); Anion Gap 12 mmol/L (10-20); BUN (Urea Nitrogen) 15 mg/dL (9.8-20.1); Bilirubin, Total 0.7 mg/dL (0.2-1.2); Calc. Creatinine Clearance 0 mL/min (70-130); Calcium 9.6 mg/dL (7.8-10.44); Carbon Dioxide 26 mmol/L (23-31); Chloride 101 mmol/L (98-107); Estimated GFR-MDRD 49; Globulin 3.1 g/dL (2.4-3.5); Glucose 113 mg/dL (83-110); Potassium 3.7 mmol/L (3.5-5.1); Protein, Total 7.3 g/dL (6.0-8.3); Sodium 135 mmol/L (136-145)
--- NOTE | 2019-07-19 14:34 | RAD ---
PORTABLE CHEST: HISTORY: Syncope. COMPARISON: 04/01/2018. FINDINGS: The lungs are clear of infiltrate. Heart size within normal range. Vasculature normal. Postop ster notomy changes noted. IMPRESSION: No acute process. POS: C
[2019-07-19] MEDS ORDERED: Iopamidol 370 76% 100 ML VIAL ONE (14:50)
[2019-07-19 14:55] LABS: CK (CPK) 111 U/L (29-168); Lipase 34 U/L (8-78)
[2019-07-19] MEDS ORDERED: Bisacodyl 5 MG TAB PO PRN (15:11)
[2019-07-19] MEDS ORDERED: Loperamide HCl 2 MG CAP PO PRN (15:11)
[2019-07-19] MEDS ORDERED: Calcium Carbonate 500 MG ChewTAB PO PRN (15:11)
[2019-07-19] MEDS ORDERED: Ondansetron PF 4 MG/2 ML Vial IVP PRN (15:11)
[2019-07-19] MEDS ORDERED: HYDROcodone/Acetaminophen 5/325 mg Tablet PO PRN (15:11)
[2019-07-19] MEDS ORDERED: Ondansetron ODT 4 MG TAB PO PRN (15:11)
[2019-07-19] MEDS ORDERED: Acetaminophen 325 MG TAB PO PRN (15:11)
[2019-07-19] MEDS ORDERED: HYDROcodone/Acetaminophen 7.5/325 mg Tablet PO PRN (15:11)
[2019-07-19] MEDS ORDERED: Docusate 100 MG CAP PO PRN (15:13)
[2019-07-19] MEDS ORDERED: Labetalol HCl 100 MG/20 ML VIAL SLOW IVP PRN (15:13)
[2019-07-19] MEDS ORDERED: Melatonin 3 MG TAB PO PRN (15:13)
[2019-07-19] MEDS ORDERED: Benzonatate 100 MG CAP PO PRN (15:13)
[2019-07-19] MEDS ORDERED: diphenhydrAMINE 25 MG CAP PO PRN (15:13)
--- NOTE | 2019-07-19 15:13 | CT ---
CT BRAIN WITHOUT CONTRAST: INDICATION: History of syncope. COMPARISON: Prior exam dated 04/01/2018. FINDINGS: No acute infarct, hemorrhage, or hydrocephalus is present. Mild chronic small vessel white matter isc hemic change is similar appearing. No midline shift is evident. There is mucosal thickening in the le ft maxillary sinus. Mastoid air cells are clear. Skull intact. IMPRESSION: No acute intracranial abnormality. POS: OFF
[2019-07-19 15:31] LABS: Bacteria/HPF None Seen HPF (None Seen); Bilirubin Negative (Negative); Blood, Urine Negative (Negative); Clarity Clear (Clear); Glucose, Urine (Dipstick) Normal (Negative); Leukocyte Negative Leu/uL (Negative); Nitrite Negative (Negative); Protein, Urine (Dipstick) 30 mg/dL (Neg-Trace); RBC/HPF 0-3 HPF (0-3); Squamous Epithelial 0-3 HPF (0-3); Urobilinogen Normal mg/dL (Less than 2); WBC/HPF 0-3 HPF (0-3)
--- NOTE | 2019-07-19 15:38 | CT ---
CT ANGIOGRAM OF THE CHEST: HISTORY: Code green. Nausea. Dizziness. COMPARISON: None. TECHNIQUE: CT angiogram of the chest is performed in the axial plane. Three-dimensional reformatted images are s ubmitted for interpretation. FINDINGS: Mediastinum: No mass, lymphadenopathy or hematoma. HEART: Normal size. No significant pericardial fluid. Aorta: Ascending thoracic aorta, aortic arch and descending thoracic aorta demonstrate minimal athero sclerosis. There is calcified plaque in the celiac artery origin, incompletely evaluated. There is atherosclerosis with severe stenosis involving the origin and proximal left subclavian artery. There is an anastomosis between the left carotid artery in the mid left subclavian artery. 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 Upper solid abdominal viscera: No abnormality enhancement. Trachea and central bronchi: Patent. Pleural spaces: No effusion. Lung parenchyma: Patchy areas of subsegmental atelectasis and scar. Additional patchy groundglass op[place] cities may represent edema. Pneumothorax: None. Osseous structures: No lytic or blastic lesions. Pulmonary arteries: Adequate contrast opacification pulmonary arterial system to the level of segment al arteries. No filling defect to suggest pulmonary embolism. IMPRESSION: 1. No evidence of pulmonary artery embolism to the level of the segmental arteries. 2. Atherosclerotic disease with stenosis and bypass as described above. 3. Component of pulmonary edema suspected. Transcribed Date/Time: 07/19/2019 3:43 PM
[2019-07-19 17:09] LABS: Troponin I Less than 0.010 ng/mL (< 0.028)
[2019-07-19 17:48] VITALS: BMI 33.7
--- NOTE | 2019-07-19 18:27 | PDOC.HHP ---
Hospitalist HPI - History of Present Illness Syncope History of Present Illness: Very pleasant 74-year-old white female past medical history of coronary artery disease with coronary artery bypass grafting, hypertension, and hyperlipidemia who was in the hospital visiting her suffers a syncopal episode. Patient was sitting in the chair not acting herself and her called nursing staff. Patient slumped over in the chair and did not fall to the ground , there was no trauma, she did not hit her head, arms, or legs. There was no convulsive type activity. No loss of bowel or bladder function. No tongue biting. No focal neurologic deficits. Patient is not fell short of breath. No chest pain. No Palpitations. Patient's is sick in the hospital with influenza and pneumonia. Patient has been feeling ill over the weekend, though her symptoms have improved yesterday and today. Patient states that she was recently seen in the primary care's office and had her blood pressure medications increased, though she is not sure exactly the name of which medicine was increased. Patient states that she will get the names and doses of all of her medication. Patient follows up with Dr. Cyr with cardiology. Hospitalist ROS - Review of Systems All other systems reviewed; all pertinent +/- noted in HPI/Subj Hospitalist History - Past Medical History Source: patient, old records Cardiac: reports: CAD (CABG), CHF, HTN, Hyperlipidemia - Past Surgical History Past Surgical History: reports: CABG - Family History Family History: reports: hyperlipidemia - Social History Smoking Status: Never smoker Alcohol: reports: None Drugs: reports: none Living Situation: With Family Domestic Violence: Negative Activity level: independent ambulation - Exam General Appearance: NAD, awake alert Eye: PERRL, anicteric sclera ENT: normocephalic atraumatic, moist mucosa Neck: supple, symmetric, no lymphadenopathy Heart: no murmur, no gallops, no rubs Respiratory: CTAB, no wheezes, no rales, no ronchi, normal chest expansion, no tachypnea Gastrointestinal: soft, non-tender, non-distended, no guarding, no rigidity Extremities: 1+ LE edema Skin: no lesions, no rashes Neurological: cranial nerve grossly intact, normal sensation to touch, no focal deficits Musculoskeletal: generalized weakness Psychiatric: normal affect, normal behavior, A&O x 3 Hospitalist Results - Labs Result Diagrams: 07/19/19 13:26 07/19/19 13:26 Lab results: WBC 5.6 thou/uL (4.8-10.8) 07/19/19 13:26 Hgb 14.5 g/dL (12.0-16.0) 07/19/19 13:26 Hct 42.2 % (36.0-47.0) 07/19/19 13:26 MCV 84.5 fL (78.0-98.0) 07/19/19 13:26 Plt Count 193 thou/uL (130-400) 07/19/19 13:26 Neutrophils % 78.0 % (42.0-75.0) H 07/19/19 13:26 Sodium 135 mmol/L (136-145) L 07/19/19 13:26 Potassium 3.7 mmol/L (3.5-5.1) 07/19/19 13:26 Chloride 101 mmol/L (98-107) 07/19/19 13:26 Carbon Dioxide 26 mmol/L (23-31) 07/19/19 13:26 BUN 15 mg/dL (9.8-20.1) 07/19/19 13:26 Creatinine 1.10 mg/dL (0.6-1.1) 07/19/19 13:26 Glucose 113 mg/dL (83-110) H 07/19/19 13:26 Lactic Acid 1.8 mmol/L (0.5-2.2) 07/19/19 14:07 Calcium 9.6 mg/dL (7.8-10.44) 07/19/19 13:26 Total Bilirubin 0.7 mg/dL (0.2-1.2) 07/19/19 13:26 AST 20 U/L (5-34) 07/19/19 13:26 ALT 17 U/L (8-55) 07/19/19 13:26 Alkaline Phosphatase 64 U/L (40-110) 07/19/19 13:26 Ammonia 20 umol/L (18-72) 07/19/19 14:05 Creatine Kinase 111 U/L (29-168) 07/19/19 14:07 Troponin I Less than 0.010 ng/mL (< 0.028) 07/19/19 16:43 B-Natriuretic Peptide 30.2 pg/mL (0-100) 07/19/19 14:07 Serum Total Protein 7.3 g/dL (6.0-8.3) 07/19/19 13:26 Albumin 4.2 g/dL (3.4-4.8) 07/19/19 13:26 Lipase 34 U/L (8-78) 07/19/19 14:07 Urine Ketones Negative mg/dL (Negative) 07/19/19 14:53 Urine Blood Negative (Negative) 07/19/19 14:53 Urine Nitrite Negative (Negative) 07/19/19 14:53 Ur Leukocyte Esterase Negative Rayo/uL (Negative) 07/19/19 14:53 Urine RBC 0-3 HPF (0-3) 07/19/19 14:53 Urine WBC 0-3 HPF (0-3) 07/19/19 14:53 Ur Squamous Epith Cells 0-3 HPF (0-3) 07/19/19 14:53 Urine Bacteria None Seen HPF (None Seen) 07/19/19 14:53 - Radiology Interpretation CT scan - chest Status: image reviewed by wv Hospitalist H&P A/P - Problem (1) Syncopal episodes Code(s): R55 - SYNCOPE AND COLLAPSE Status: Acute (2) CAD (coronary artery disease) Code(s): I25.10 - ATHSCL HEART DISEASE OF [place] CORONARY ARTERY W/O ANG PCTRS Status: Acute (3) Chronic kidney disease (CKD) Code(s): N18.9 - CHRONIC KIDNEY DISEASE, UNSPECIFIED Status: Acute (4) Hypertension Code(s): I10 - ESSENTIAL (PRIMARY) HYPERTENSION Status: Acute - Plan Plan: Plan: admit to medical unit with telemetry cardiology consultation, recommendations appreciated echocardiogram orthostatic vital signs with recent increase in blood pressure medications the patient may have had a hypotensive episode patient seem in the emergency department and her symptoms have resolved blood pressure monitoring Flu negative continue home medications as able CT angiography of the chest was negative for acute pathology, there was mention of mild pulmonary edema though her BNP is normal blood sugar control G.I. prophylaxis DVT prophylaxis
[2019-07-19 19:50] LABS: Troponin I Less than 0.010 ng/mL (< 0.028)
[2019-07-19] MEDS: Famotidine 20 MG TAB PO SCH (20:23)
[2019-07-19] MEDS ORDERED: Ezetimibe 10 MG TAB PO SCH (21:00)
[2019-07-20] MEDS ORDERED: Nitroglycerin 0.4 MG TAB (25 Tab Bottle) ONE (04:11)
[2019-07-20] MEDS ORDERED: Nitroglycerin 0.4 MG TAB (25 Tab Bottle) PO PRN (04:27)
--- NOTE | 2019-07-20 04:27 | PDOC.EVN ---
Event Note - Event Note Event Note: Notified by RN, patient experiencing chest pain 4/10 , radiating to left neck/ arm. Stat EKG done notable for further ST depression in v4-v6 compared to previous EKG. Aspirin 325 mg PO x 1 and nitro SL ordered. Trend trop x 3. Cardiology already consulted for the AM. Patient has been NPO since midnight. Dr. Flynn aware and in agreement with plan as above.
[2019-07-20] MEDS ORDERED: Sodium Chloride 0.9% 1,000 ML IV SCH (04:30)
[2019-07-20] MEDS ORDERED: Aspirin 325 MG TAB PO SCH (04:30)
[2019-07-20 05:15] LABS: Anion Gap 12 mmol/L (10-20); BUN (Urea Nitrogen) 11 mg/dL (9.8-20.1); Calc. Creatinine Clearance 107 mL/min (70-130); Calcium 8.9 mg/dL (7.8-10.44); Carbon Dioxide 24 mmol/L (23-31); Chloride 103 mmol/L (98-107); Estimated GFR-MDRD 80; Glucose 93 mg/dL (83-110); Potassium 3.3 mmol/L (3.5-5.1); Sodium 136 mmol/L (136-145)
[2019-07-20 05:42] LABS: Band 10 % (5-11); Hemoglobin 14.2 g/dL (12.0-16.0); Lymphocytes 11 % (21-51); MDiff Complete? YES; Mean Corpuscular HGB CONC 32.5 g/dL (32.0-36.0); Mean Corpuscular Hemoglobin 27.7 pg (27.0-31.0); Mean Corpuscular Volume 85.3 fL (78.0-98.0); Mean Platelet Volume 8.6 fL (7.4-10.4); Monocytes 14 % (0-10); Neutrophil 65 % (42-75); Platelet Count 164 thou/uL (130-400); RBC Distribution Width 12.9 % (11.5-14.5); Red Blood Cell (RBC) Count 5.12 mill/uL (4.20-5.40)
[2019-07-20 07:56] LABS: CKMB 1.4 ng/mL (0-6.6)
[2019-07-20] MEDS: Famotidine 20 MG TAB PO SCH (08:40)
--- NOTE | 2019-07-20 08:41 | PDOC.HOSPP ---
- Subjective Encounter Date: 07/20/19 Encounter Time: 10:30 Subjective: Patient without further syncope or dizziness. Ambulated in the hallway this AM without problem. Had some chest pain last night, she thinks it was her typical GERD symptoms. None currently. - Objective Vital Signs & Weight: Vital Signs (12 hours) Temp Pulse Resp BP BP Pulse Ox 07/20/19 05:01 69 120/57 L 07/20/19 04:05 73 18 134/66 97 07/20/19 03:21 98.5 F 60 18 136/65 97 07/19/19 23:30 98.6 F 64 16 97/50 L 94 L Weight Weight 215 lb 1 oz I&O: 07/19/19 07/20/19 07/21/19 06:59 06:59 06:59 Intake Total 1108 Output Total 2200 Balance -1092 Result Diagrams: 07/20/19 04:34 07/20/19 04:34 Hospitalist ROS - Review of Systems Constitutional: denies: fever, chills Respiratory: denies: cough, shortness of breath Cardiovascular: reports: chest pain. denies: palpitations, orthopnea Gastrointestinal: denies: nausea, vomiting, abdominal pain, diarrhea, constipation Neurological: denies: weakness, numbness, change in speech, confusion - Medication Medications: Active Medications Generic Name Dose Route Start Last Admin Trade Name Freq PRN Reason Stop Dose Admin Acetaminophen 650 mg 07/19/19 15:11 07/19/19 20:23 Tylenol PO 650 mg Q4H PRN Administration Headache/Fever/Mild Pain (1-3) Ezetimibe 10 mg 07/19/19 21:00 07/19/19 20:23 Zetia PO 10 mg QPM DAX Administration Famotidine 20 mg 07/19/19 21:00 07/19/19 20:23 Pepcid PO 20 mg BID DAX Administration Sodium Chloride 1,000 mls @ 70 mls/hr 07/20/19 04:30 07/20/19 04:26 Normal Saline 0.9% IV 1,000 mls .[id number] DAX Administration - Exam General Appearance: NAD, awake alert ENT: moist mucosa Heart: RRR, no murmur, no gallops, no rubs Respiratory: CTAB, no wheezes, no rales, no ronchi Gastrointestinal: soft, non-tender, non-distended, normal bowel sounds Psychiatric: normal affect, normal behavior, A&O x 3 Hosp A/P (1) Syncope Code(s): R55 - SYNCOPE AND COLLAPSE Status: Acute (2) Unstable angina Status: Acute (3) CAD (coronary artery disease) Code(s): I25.10 - ATHSCL HEART DISEASE OF [place] CORONARY ARTERY W/O ANG PCTRS Status: Chronic (4) Chronic kidney disease (CKD) Code(s): N18.9 - CHRONIC KIDNEY DISEASE, UNSPECIFIED Status: Chronic Qualifiers: Chronic kidney disease stage: stage 2 (mild) Qualified Code(s): N18.2 - Chronic kidney disease, stage 2 (mild) (5) Hypertension Code(s): I10 - ESSENTIAL (PRIMARY) HYPERTENSION Status: Chronic - Plan observed on telemetry cardiology consultation pending chest pain overnight, with worsened ST depression on EKG, indeterminate troponin echocardiogram patient mildly orthostatic this AM (156 --> 137 systolic) CT angiography of the chest was negative for acute pathology, there was mention of mild pulmonary edema though her BNP is normal G.I. prophylaxis- Pepcid DVT prophylaxis- Lovenox
[2019-07-20] MEDS ORDERED: Clopidogrel Bisulfate 75 MG TAB PO SCH (09:00)
[2019-07-20] MEDS ORDERED: Aspirin Chewable 81 MG TAB PO SCH (09:00)
[2019-07-20] MEDS ORDERED: Enoxaparin Sodium 40 MG/0.4 ML SYRINGE SC SCH (09:00)
[2019-07-20] MEDS ORDERED: Ascorbic Acid 500 mg Chewable Tablet PO SCH (09:00)
[2019-07-20] MEDS ORDERED: Fish Oil 1,000 MG CAP PO SCH (09:00)
[2019-07-20] MEDS ORDERED: Magnesium Oxide 250 MG TAB PO SCH (09:00)
[2019-07-20 16:11] VITALS: BP 157/71; TEMP 99.6
--- NOTE | 2019-07-20 19:09 | CON ---
DATE OF CONSULTATION: 07/20/2019 REASON FOR CONSULTATION: Syncope. HISTORY OF PRESENT ILLNESS: Ms. Beck is a very pleasant 74-year-old white female, very well known to myself, who comes to the hospital to see her who admitted for influenza type A. She was sitting at his bedside and suddenly felt lightheaded, felt like the curtain was being pulled down and suddenly just slumped over. states that she saw her head just went backward, so she lost consciousness for a few seconds. She called for help, and a code barby was called. She eventually was taken to the ER and admitted for monitoring. She has a history of coronary artery disease with very complex disease. She has a SAMAYOA to the LAD and had a severely stenosis subclavian. She was ischemic in the anterior wall. Because of this, she had to have a carotid to subclavian bypass. Her angina actually improved with this. She has otherwise has diffuse disease. She has an occluded left main and an occluded mid-RCA. A vein graft to diagonal is patent. A vein graft to the RCA was patent. The LAD was filling from RCA collaterals after the vein graft; however, now she is getting flow through the left carotid to subclavian bypass. She denies any chest pain, tightness, or pressure. When she was admitted, her vital signs were positive for orthostatic hypotension. She dropped about 25 points when standing up. She has been given fluids. She feels much better. She has a LINQ implantable loop recorder placed, and this was interrogated, and she has not had any arrhythmias since May of 2018. PAST MEDICAL HISTORY: 1. Coronary artery disease, status post CABG x3 as above. She has a patent SAMAYOA to the LAD, SAMAYOA fills from the left carotid to subclavian bypass as she has an occluded left subclavian. A vein graft to the RCA and a vein graft to an OM. She has an occluded left main and occluded RCA. 2. Peripheral vascular disease. 3. Hypertension. 4. Hyperlipidemia. 5. Carotid artery stenosis. PAST SURGICAL HISTORY: 1. Hysterectomy in 1971. 2. Cholecystectomy in 1988. 3. Mastectomy in 2004. 4. CABG in 2011 in [place]. 5. Right knee replacement in 2012. 6. Left knee replacement in 2013. 7. Right carotid endarterectomy in 2018. 8. Left subclavian to carotid bypass in 2018. ALLERGIES: STATIN DRUGS. OUTPATIENT MEDICATIONS: 1. Lisinopril 40 mg a day. 2. Isosorbide mononitrate 60 mg a day. 3. CoQ10. 4. [place]-3 fish oil. 5. Aspirin 81 a day. 6. Vitamin C. 7. Flaxseed oil. 8. Zetia 10 mg q.p.m. 9. Plavix 75 mg a day. 10. Magnesium 250 mg a day. 11. Hydrochlorothiazide 12.5 mg a day. 12. Pantoprazole 40 mg a day. SOCIAL HISTORY: No alcohol, tobacco, or drugs. REVIEW OF SYSTEMS: A 12-point review of systems was done and was all negative unless stated in the history of present illness. FAMILY HISTORY: Noncontributory. PHYSICAL EXAMINATION: VITAL SIGNS: Temperature 99.6, pulse 66, respiratory rate 16, saturation 98% on room air, and blood pressure 137/67. GENERAL: Awake, alert, oriented x3. In no distress. HEENT: Normocephalic and atraumatic. NECK: Supple. LUNGS: Clear. CARDIOVASCULAR: S1 and S2. No S3 or S4. There is a grade 2/6 systolic murmur at the right upper sternal border. ABDOMEN: Soft. Positive bowel sounds. EXTREMITIES: Trace edema. SKIN: Warm and dry. LABORATORY DATA: Laboratory work was reviewed. Sodium 136, potassium was 3.3. Normal BUN and creatinine. Troponin was negative x4. BNP was 30. Lactic acid was 1.8. Influenza A and B were negative. UA was unremarkable. Telemetry monitoring has been unremarkable. Interrogation of LINQ showed no evidence of arrhythmias. ASSESSMENT AND PLAN: 1. Syncope. This is a recurrence in her syncope. No arrhythmias were seen on court monitor during her syncopal episode. More than likely she was orthostatic. Negative flu titer so far. Her was positive for the influenza A. 2. No EKG changes to suggest ischemia. She has not had any chest pain, tightness, or pressure. This would have been a myocardial infarction. I would have expected her to have some sort of ischemic arrhythmias which she has not had. She is asymptomatic from the cardiac perspective. 3. Continue current medications for now. 4. Maintain very well good hydration. 5. She should be able to be discharged home at any point from the cardiac perspective. Thank you for letting us to participate in the care of your patient. We will sign off. Please call with any questions. Plan to follow up with Ms. Beck in one month. Job ID: [id number]
--- NOTE | 2019-07-21 05:21 | DIS ---
DATE OF ADMISSION: 07/19/2019 DATE OF DISCHARGE: 07/20/2019 PRIMARY CARE PHYSICIAN: Marsha Andrews. PRIMARY CORPORATE CONTROLLER: Arnulfo Cyr MD. REASON FOR ADMISSION: Syncopal episode while visiting her in the hospital with flu. DIAGNOSES AT DISCHARGE: 1. Syncope, resolved. 2. Chest pain. No acute coronary syndrome. 3. Gastroesophageal reflux disease. 4. Chronic kidney disease. 5. Hypertension. PROCEDURES: 1. CT of the brain without contrast showing no acute abnormality. 2. CT of the chest without contrast showing no evidence for pulmonary embolism, some possible mild pulmonary edema. Echocardiogram showing an ejection fraction of 60% to 65% and 1/3 diastolic dysfunction. CONSULTATIONS: Cardiology, Dr. Cyr. SUMMARY OF HOSPITAL COURSE: This is a 74-year-old white female with a history of coronary artery disease with coronary artery bypass grafting, hypertension, hyperlipidemia, who was visiting her hospital in with flu. She developed a syncopal episode. She was sitting in the chair, not acting herself. The called nursing staff. She was slumped over the chair, but did not fall or have any trauma. This resolved when she was seen in the emergency room and has not had any further symptoms like that. She did have some chest pain in the middle of the night after she was admitted. This resolved spontaneously without any elevations of her troponin. There was some question of possible worsening ST depression on her EKG, though. Dr. Cyr from Cardiology was consulted. He did evaluate her. He did an echocardiogram on her. She was asymptomatic on the day of discharge. She stated the chest pain now as she thought about felt like her typical gastroesophageal reflux pain. She was ambulating in the hallway without any dizziness or lightheadedness, and when she was cleared to be discharged by Dr. Cyr. DISCHARGE MANAGEMENT: Discharged home. FOLLOWUP: Follow up with Dr. Cyr in 2 to 3 weeks and with her primary care physician in 7 days. ACTIVITY: As tolerated. DIET: Healthy heart diet. MEDICATIONS: 1. Protonix 40 mg daily, 14 tablets dispensed. 2. Vitamin C 500 mg daily. 3. Aspirin 81 mg daily. 4. Clopidogrel 75 mg daily. 5. Ezetimibe 10 mg at night. 6. Flaxseed oil 1300 mg soft gel daily. 7. Hydrochlorothiazide 12.5 mg daily. 8. Naprosyn. 9. Isosorbide mononitrate 60 mg daily. 10. Lisinopril 40 mg daily. 11. Magnesium 250 mg daily. 12. Fish oil, omega-3, vitamin D soft gel one cap daily. 13. CoQ10 of 200 mg daily. Job ID: [id number] MTDD
[2019-07-21] MEDS ORDERED: Aspirin Chewable 81 MG TAB PO SCH (09:00)
== END 2019-07-20 18:57 | disposition home or self-care (01) ==
LOC: ERS 13:16 → 2SW 15:23
PROVIDERS: ADMIT Internal Medicine; ATTEND Internal Medicine
DX: R55 Syncope and collapse (principal); R07.9 Chest pain, unspecified; I13.0 Hypertensive heart and chronic kidney disease with heart failure and stage 1 through stage 4 chronic kidney disease, or unspecified chronic kidney disease; N18.9 Chronic kidney disease, unspecified; I50.9 Heart failure, unspecified; I25.10 Atherosclerotic heart disease of native coronary artery without angina pectoris; E78.5 Hyperlipidemia, unspecified; K21.9 Gastro-esophageal reflux disease without esophagitis; Z79.899 Other long term (current) drug therapy; Z88.8 Allergy status to other drugs, medicaments and biological substances; Z95.1 Presence of aortocoronary bypass graft
CPT/HCPCS: 70450; 71045; 71275; 80048; 80053; 82140; 82550; 82553; 82962; 83605; 83690; 83880; 84484 ×4; 85025 ×2; 85379; 87040; 87804 ×2; 93005 ×2; 93306; 96360; 96361 ×2; 96372; 97139 ×4; 99285; G0378 ×3; 36415; 36416; 81003; 81015; 93010; J1650; Q9967

== ENCOUNTER 2020-11-29 07:22 | Observation (INO) | payer MEDICARE ==
[2020-11-29 08:19] LABS: #Eosinphils 0.2 thou/uL (0.0-0.7); #Lymphocytes 1.3 thou/uL (1.20-3.40); #Monocytes 0.4 thou/uL (0.11-0.59); #Neutrophils 4.1 thou/uL (1.40-6.50); %Basophils 0.3 % (0.0-1.0); %Eosinophils 3.6 % (0.0-10.0); %Neutrophils 67.2 % (42.0-75.0); Hemoglobin 14.2 g/dL (12.0-16.0); Mean Corpuscular HGB CONC 31.9 g/dL (32.0-36.0); Mean Corpuscular Hemoglobin 27.6 pg (27.0-31.0); Mean Corpuscular Volume 86.5 fL (78.0-98.0); Mean Platelet Volume 8.4 fL (7.4-10.4); Platelet Count 215 thou/uL (130-400); Red Blood Cell (RBC) Count 5.16 mill/uL (4.20-5.40); White Blood Cell (WBC) Count 6.1 thou/uL (4.8-10.8)
[2020-11-29 08:38] LABS: ALT (SGPT) 16 U/L (8-55); AST (SGOT) 18 U/L (5-34); Alkaline Phosphatase 74 U/L (40-110); Anion Gap 11 mmol/L (10-20); BUN (Urea Nitrogen) 12 mg/dL (9.8-20.1); Bilirubin, Total 0.8 mg/dL (0.2-1.2); Calc. Creatinine Clearance 0 mL/min (70-130); Calcium 9.3 mg/dL (7.8-10.44); Carbon Dioxide 27 mmol/L (23-31); Chloride 107 mmol/L (98-107); Globulin 3.3 g/dL (2.4-3.5); Glucose 105 mg/dL (83-110); Potassium 4.3 mmol/L (3.5-5.1); Protein, Total 7.3 g/dL (5.8-8.1); Sodium 141 mmol/L (136-145)
[2020-11-29] MEDS ORDERED: Aspirin Chewable 81 MG TAB ONE (09:25)
[2020-11-29] MEDS ORDERED: Nitroglycerin 0.4 MG TAB (25 Tab Bottle) SL PRN (09:57)
[2020-11-29] MEDS ORDERED: Acetaminophen 325 MG TAB PO PRN (10:01)
[2020-11-29] MEDS ORDERED: Ondansetron ODT 4 MG TAB PO PRN (10:01)
[2020-11-29] MEDS ORDERED: Ondansetron PF 4 MG/2 ML Vial IVP PRN (10:01)
[2020-11-29] MEDS ORDERED: hydrALAZINE 20 MG/ML VIAL SLOW IVP PRN (10:21)
[2020-11-29 13:46] LABS: Troponin I Less than 0.010 ng/mL (< 0.028)
[2020-11-29 15:43] LABS: Troponin I Less than 0.010 ng/mL (< 0.028)
[2020-11-29] MEDS ORDERED: hydrALAZINE 20 MG/ML VIAL ONE (16:07)
[2020-11-29 20:27] VITALS: BMI 30.5
[2020-11-29] MEDS ORDERED: Ezetimibe 10 MG TAB PO SCH (21:00)
[2020-11-29] MEDS: Lisinopril 20 MG TAB PO SCH (21:01)
[2020-11-30 05:18] LABS: #Eosinphils 0.3 thou/uL (0.0-0.7); #Lymphocytes 1.7 thou/uL (1.20-3.40); #Monocytes 0.5 thou/uL (0.11-0.59); #Neutrophils 3.6 thou/uL (1.40-6.50); %Basophils 0.6 % (0.0-1.0); %Eosinophils 4.8 % (0.0-10.0); %Lymphocytes 27.7 % (21.0-51.0); %Monocytes 8.2 % (0.0-10.0); %Neutrophils 58.7 % (42.0-75.0); Mean Corpuscular HGB CONC 32.5 g/dL (32.0-36.0); Mean Corpuscular Hemoglobin 28.4 pg (27.0-31.0); Mean Corpuscular Volume 87.4 fL (78.0-98.0); Mean Platelet Volume 8.6 fL (7.4-10.4); Platelet Count 192 thou/uL (130-400); RBC Distribution Width 12.9 % (11.5-14.5); Red Blood Cell (RBC) Count 4.93 mill/uL (4.20-5.40); White Blood Cell (WBC) Count 6.1 thou/uL (4.8-10.8)
[2020-11-30 05:44] LABS: Anion Gap 10 mmol/L (10-20); BUN (Urea Nitrogen) 12 mg/dL (9.8-20.1); Calc. Creatinine Clearance 103 mL/min (70-130); Calcium 9.1 mg/dL (7.8-10.44); Carbon Dioxide 24 mmol/L (23-31); Cardiac Risk 3.3 (Less than 4.5); Chloride 108 mmol/L (98-107); Cholesterol 150 mg/dl (< 200 Desired); Glucose 100 mg/dL (83-110); HDL Cholesterol 46 mg/dL (>60 Neg Risk); LDL Cholesterol, Calculated 82 mg/dL; Sodium 138 mmol/L (136-145); Triglycerides 109 mg/dL (Less than 150)
[2020-11-30] MEDS ORDERED: Aspirin Chewable 81 MG TAB PO SCH (09:00)
[2020-11-30] MEDS ORDERED: Lisinopril 10 MG TAB PO SCH (09:00)
[2020-11-30] MEDS: Lisinopril 20 MG TAB PO SCH (09:09)
[2020-11-30 12:14] LABS: SARS-CoV-2 PCR by NAA Not Detected (NotDetected)
[2020-11-30 14:08] VITALS: BP 177/76; TEMP 97.7
== END 2020-11-30 16:20 | disposition home or self-care (01) ==
LOC: ERS 07:22 → ERHOLD 09:54 → 2SW 19:51
PROVIDERS: ADMIT Internal Medicine; ATTEND Internal Medicine
DX: I16.0 Hypertensive urgency (principal); R55 Syncope and collapse; R00.1 Bradycardia, unspecified; I10 Essential (primary) hypertension; E78.5 Hyperlipidemia, unspecified; I25.10 Atherosclerotic heart disease of native coronary artery without angina pectoris; I73.9 Peripheral vascular disease, unspecified; I08.3 Combined rheumatic disorders of mitral, aortic and tricuspid valves; Z85.3 Personal history of malignant neoplasm of breast; Z79.02 Long term (current) use of antithrombotics/antiplatelets; Z79.82 Long term (current) use of aspirin; Z79.899 Other long term (current) drug therapy; Z88.8 Allergy status to other drugs, medicaments and biological substances; Z95.1 Presence of aortocoronary bypass graft; Z20.822 Contact with and (suspected) exposure to COVID-19
CPT/HCPCS: 71045; 76770; 80048; 80061; 83735; 83880; 84484 ×2; 85025; 93005; 93306; 93975; 94760; 99285; U0003; U0005; 36415; 80053; 84443; 96374; G0378; J0360

== ENCOUNTER 2022-06-13 11:42 | Observation (INO) | payer MEDICARE, OTHER ==
[2022-06-13 13:23] LABS: #Eosinphils 0.7 thou/uL (0.0-0.7); #Lymphocytes 1.8 thou/uL (1.20-3.40); #Monocytes 0.7 thou/uL (0.11-0.59); #Neutrophils 4.9 thou/uL (1.40-6.50); %Basophils 0.6 % (0.0-1.0); %Eosinophils 8.6 % (0.0-10.0); %Lymphocytes 22.2 % (21.0-51.0); %Monocytes 8.8 % (0.0-10.0); %Neutrophils 59.8 % (42.0-75.0); Hemoglobin 14.5 g/dL (12.0-16.0); Mean Corpuscular HGB CONC 34.4 g/dL (32.0-36.0); Mean Corpuscular Hemoglobin 30.1 pg (27.0-31.0); Mean Corpuscular Volume 87.7 fl (78.0-98.0); Mean Platelet Volume 8.2 fL (7.4-10.4); Platelet Count 271 10x3/uL (130-400); RBC Distribution Width 13.6 % (11.5-14.5); Red Blood Cell (RBC) Count 4.81 mill/uL (4.20-5.40); White Blood Cell (WBC) Count 8.1 10x3/uL (4.8-10.8)
[2022-06-13 13:47] LABS: ALT (SGPT) 14 U/L (8-55); AST (SGOT) 21 U/L (5-34); Alkaline Phosphatase 67 U/L (40-110); Anion Gap 12 mmol/L (10-20); BUN (Urea Nitrogen) 18 mg/dL (9.8-20.1); Bilirubin, Total 0.6 mg/dL (0.2-1.2); Calc. Creatinine Clearance 0 mL/min (70-130); Calcium 9.3 mg/dL (7.8-10.44); Carbon Dioxide 26 mmol/L (23-31); Chloride 103 mmol/L (98-107); Estimated GFR 65; Globulin 3.5 g/dL (2.4-3.5); Glucose 100 mg/dL (83-110); Magnesium 2.1 mg/dL (1.6-2.6); Potassium 4.2 mmol/L (3.5-5.1); Protein, Total 7.5 g/dL (5.8-8.1); Sodium 137 mmol/L (136-145)
[2022-06-13 14:06] LABS: CKMB 1.8 ng/mL (0-6.6)
[2022-06-13] MEDS ORDERED: Nitroglycerin 0.4 MG TAB (25 Tab Bottle) SL PRN (15:10)
[2022-06-13] MEDS ORDERED: Ondansetron PF 4 MG/2 ML Vial IVP PRN (15:15)
[2022-06-13] MEDS ORDERED: Acetaminophen 325 MG TAB PO PRN (15:15)
[2022-06-13] MEDS ORDERED: Senokot S 8.6-50 MG TAB PO PRN (15:15)
[2022-06-13] MEDS ORDERED: Ondansetron ODT 4 MG TAB PO PRN (15:15)
[2022-06-13] MEDS ORDERED: Aspirin Chewable 81 MG TAB ONE (16:59)
[2022-06-13 17:40] LABS: Troponin I 0.354 ng/mL (< 0.028)
[2022-06-13 18:15] VITALS: BMI 30.2
[2022-06-13 20:06] LABS: SARS-CoV-2 NAA Rapid Test Not Detected (NotDetected)
[2022-06-13] MEDS: Enoxaparin Sodium 100 MG/ML SYRINGE SC SCH (20:26)
[2022-06-13] MEDS: Lisinopril 10 MG TAB PO SCH (20:26)
[2022-06-14 05:25] LABS: #Eosinphils 0.7 thou/uL (0.0-0.7); #Lymphocytes 2.1 thou/uL (1.20-3.40); #Monocytes 0.5 thou/uL (0.11-0.59); #Neutrophils 3.2 thou/uL (1.40-6.50); %Basophils 0.6 % (0.0-1.0); %Eosinophils 10.4 % (0.0-10.0); %Lymphocytes 31.5 % (21.0-51.0); %Monocytes 7.9 % (0.0-10.0); %Neutrophils 49.6 % (42.0-75.0); Mean Corpuscular HGB CONC 34.6 g/dL (32.0-36.0); Mean Corpuscular Hemoglobin 30.5 pg (27.0-31.0); Mean Corpuscular Volume 88.4 fl (78.0-98.0); Mean Platelet Volume 8.3 fL (7.4-10.4); Platelet Count 234 10x3/uL (130-400); RBC Distribution Width 13.6 % (11.5-14.5); Red Blood Cell (RBC) Count 4.27 mill/uL (4.20-5.40); White Blood Cell (WBC) Count 6.5 10x3/uL (4.8-10.8)
[2022-06-14 05:36] LABS: Anion Gap 11 mmol/L (10-20); BUN (Urea Nitrogen) 16 mg/dL (9.8-20.1); Calc. Creatinine Clearance 86 mL/min (70-130); Carbon Dioxide 26 mmol/L (23-31); Cardiac Risk 2.9 (Less than 4.5); Chloride 104 mmol/L (98-107); Cholesterol 137 mg/dl (< 200 Desired); Estimated GFR 80; Glucose 101 mg/dL (83-110); HDL Cholesterol 48 mg/dL (>60 Neg Risk); LDL Cholesterol, Calculated 55 mg/dL; Potassium 3.7 mmol/L (3.5-5.1); Sodium 137 mmol/L (136-145); Triglycerides 170 mg/dL (Less than 150)
[2022-06-14] MEDS ORDERED: Aspirin Chewable 81 MG TAB PO SCH (09:00)
[2022-06-14] MEDS: Enoxaparin Sodium 100 MG/ML SYRINGE SC SCH (09:41)
[2022-06-14] MEDS: Lisinopril 10 MG TAB PO SCH ×2 (09:42→20:55)
[2022-06-14] MEDS: Clopidogrel Bisulfate 75 MG TAB PO SCH (09:42)
[2022-06-14] MEDS: Fish Oil 1,000 MG CAP PO SCH (09:42)
[2022-06-14] MEDS: hydrALAZINE 25 MG TAB PO SCH (09:42)
[2022-06-14] MEDS ORDERED: Ezetimibe 10 MG TAB PO SCH (10:45)
[2022-06-14] MEDS ORDERED: Electrolyte Replacement Protocol FS PRN (10:45)
[2022-06-14] MEDS ORDERED: Electrolyte Replacement Protocol 1 EACH FS SCH (10:45)
[2022-06-14] MEDS: Dronedarone HCl 400 MG TAB PO SCH (16:35)
[2022-06-14] MEDS: Apixaban 5 MG TAB PO SCH (20:55)
[2022-06-15 06:13] LABS: #Eosinphils 0.6 thou/uL (0.0-0.7); #Lymphocytes 1.7 thou/uL (1.20-3.40); #Monocytes 0.5 thou/uL (0.11-0.59); #Neutrophils 2.7 thou/uL (1.40-6.50); %Basophils 0.1 % (0.0-1.0); %Eosinophils 10.7 % (0.0-10.0); %Lymphocytes 30.3 % (21.0-51.0); %Monocytes 9.3 % (0.0-10.0); %Neutrophils 49.7 % (42.0-75.0); Hemoglobin 12.8 g/dL (12.0-16.0); Mean Corpuscular HGB CONC 33.8 g/dL (32.0-36.0); Mean Corpuscular Hemoglobin 29.7 pg (27.0-31.0); Mean Corpuscular Volume 87.7 fl (78.0-98.0); Mean Platelet Volume 8.4 fL (7.4-10.4); Platelet Count 232 10x3/uL (130-400); RBC Distribution Width 13.7 % (11.5-14.5); Red Blood Cell (RBC) Count 4.32 mill/uL (4.20-5.40); White Blood Cell (WBC) Count 5.5 10x3/uL (4.8-10.8)
[2022-06-15 06:19] LABS: Anion Gap 11 mmol/L (10-20); BUN (Urea Nitrogen) 11 mg/dL (9.8-20.1); Calc. Creatinine Clearance 83 mL/min (70-130); Calcium 8.7 mg/dL (7.8-10.44); Carbon Dioxide 25 mmol/L (23-31); Chloride 106 mmol/L (98-107); Estimated GFR 76; Glucose 90 mg/dL (83-110); Potassium 3.6 mmol/L (3.5-5.1); Sodium 138 mmol/L (136-145)
[2022-06-15] MEDS: Dronedarone HCl 400 MG TAB PO SCH ×2 (08:58→17:02)
[2022-06-15] MEDS: Apixaban 5 MG TAB PO SCH (08:58)
[2022-06-15] MEDS: Clopidogrel Bisulfate 75 MG TAB PO SCH (08:59)
[2022-06-15] MEDS: Fish Oil 1,000 MG CAP PO SCH (09:00)
[2022-06-15] MEDS: hydrALAZINE 25 MG TAB PO SCH (09:00)
[2022-06-15] MEDS ORDERED: Ezetimibe 10 MG TAB PO SCH (09:00)
[2022-06-15] MEDS: Lisinopril 10 MG TAB PO SCH (09:01)
[2022-06-15] MEDS ORDERED: Lisinopril 10 MG TAB PO SCH (09:15)
[2022-06-15 12:06] VITALS: BP 123/69; TEMP 97.9
[2022-06-15] MEDS ORDERED: Lisinopril 20 MG TAB PO SCH (21:00)
== END 2022-06-15 17:06 | disposition home or self-care (01) ==
LOC: ERS 11:42 → ERHOLD 15:37 → 2SW 18:12
PROVIDERS: ADMIT Internal Medicine; ATTEND Internal Medicine
DX: I48.0 Paroxysmal atrial fibrillation (principal); R07.89 Other chest pain; I24.8 Other forms of acute ischemic heart disease; I25.10 Atherosclerotic heart disease of native coronary artery without angina pectoris; I13.0 Hypertensive heart and chronic kidney disease with heart failure and stage 1 through stage 4 chronic kidney disease, or unspecified chronic kidney disease; N18.2 Chronic kidney disease, stage 2 (mild); I50.32 Chronic diastolic (congestive) heart failure; G25.81 Restless legs syndrome; E78.5 Hyperlipidemia, unspecified; I45.10 Unspecified right bundle-branch block; I08.1 Rheumatic disorders of both mitral and tricuspid valves; I73.9 Peripheral vascular disease, unspecified; E66.9 Obesity, unspecified; Z68.30 Body mass index [BMI] 30.0-30.9, adult; Z85.3 Personal history of malignant neoplasm of breast; Z79.02 Long term (current) use of antithrombotics/antiplatelets; Z79.899 Other long term (current) drug therapy; Z88.8 Allergy status to other drugs, medicaments and biological substances; Z95.1 Presence of aortocoronary bypass graft; Z20.822 Contact with and (suspected) exposure to COVID-19
CPT/HCPCS: 0240U; 71045; 80048 ×2; 80061; 82553; 83735; 84484 ×2; 85025 ×2; 93005; 93306; 93798; 94760 ×2; 99285; 36415; 80053; 84443; 96372; G0378; J1650

== ENCOUNTER 2022-07-06 11:41 | Inpatient (IN) | payer OTHER ==
[~2022-07-06 11:41] MED LIST: Atropine Sulfate 1 mg/10 ml Syringe ONE
[2022-07-06] MEDS ORDERED: Atropine Sulfate 1 mg/10 ml Syringe ONE (12:02)
[2022-07-06 12:23] LABS: #Lymphocytes 0.8 thou/uL (1.20-3.40); #Monocytes 0.4 thou/uL (0.11-0.59); #Neutrophils 1.7 thou/uL (1.40-6.50); %Basophils 0.2 % (0.0-1.0); %Eosinophils 0.9 % (0.0-10.0); %Lymphocytes 27.2 % (21.0-51.0); %Monocytes 14.6 % (0.0-10.0); %Neutrophils 57.1 % (42.0-75.0); Hemoglobin 12.3 g/dL (12.0-16.0); Mean Corpuscular HGB CONC 34.1 g/dL (32.0-36.0); Mean Corpuscular Hemoglobin 29.2 pg (27.0-31.0); Mean Corpuscular Volume 85.9 fl (78.0-98.0); Mean Platelet Volume 9.3 fL (7.4-10.4); Platelet Count 168 10x3/uL (130-400); RBC Distribution Width 13.2 % (11.5-14.5); Red Blood Cell (RBC) Count 4.22 mill/uL (4.20-5.40)
[2022-07-06 12:43] LABS: ALT (SGPT) 18 U/L (8-55); AST (SGOT) 25 U/L (5-34); Albumin 3.4 g/dL (3.4-4.8); Alkaline Phosphatase 51 U/L (40-110); Anion Gap 14 mmol/L (10-20); BUN (Urea Nitrogen) 14 mg/dL (9.8-20.1); Bilirubin, Total 0.6 mg/dL (0.2-1.2); Calc. Creatinine Clearance 0 mL/min (70-130); Calcium 8.2 mg/dL (7.8-10.44); Carbon Dioxide 23 mmol/L (23-31); Chloride 97 mmol/L (98-107); Estimated GFR 69; Globulin 2.5 g/dL (2.4-3.5); Glucose 104 mg/dL (83-110); Potassium 4.2 mmol/L (3.5-5.1); Protein, Total 5.9 g/dL (5.8-8.1); Sodium 130 mmol/L (136-145)
[2022-07-06] MEDS ORDERED: Ondansetron PF 4 MG/2 ML Vial IVP PRN (14:10)
[2022-07-06] MEDS ORDERED: Ondansetron ODT 4 MG TAB PO PRN (14:10)
[2022-07-06] MEDS ORDERED: Senokot S 8.6-50 MG TAB PO PRN (14:10)
[2022-07-06] MEDS ORDERED: Acetaminophen 325 MG TAB PO PRN (14:10)
[2022-07-06] MEDS ORDERED: Sodium Chloride 0.9% 1,000 ML IV SCH (14:15)
[2022-07-06 14:55] LABS: Magnesium 1.8 mg/dL (1.6-2.6)
[2022-07-06 16:37] LABS: SARS-CoV-2 NAA Rapid Test DETECTED (NotDetected)
[2022-07-06 17:02] LABS: Bacteria/HPF 4+ HPF (None Seen); Bilirubin Negative (Negative); Blood, Urine 1+ (Negative); Clarity Extra Turbid (Clear); Glucose, Urine (Dipstick) Normal (Negative); Ketone, Urine Negative (Negative); Leukocyte 500 Leu/uL (Negative); Nitrite 1+ (Negative); Protein, Urine (Dipstick) 10 mg/dL (Neg-Trace); RBC/HPF 21-50 HPF (0-3); Squamous Epithelial 0-3 HPF (0-3); WBC/HPF Greater than 50 HPF (0-3)
[2022-07-06] MEDS ORDERED: Zinc Sulfate 220 MG CAP ONE (17:47)
[2022-07-06] MEDS: Zinc Sulfate 220 MG CAP PO SCH (17:48)
[2022-07-06] MEDS: Apixaban 5 MG TAB PO SCH (21:01)
[2022-07-06] MEDS ORDERED: Sodium Chloride 0.65% Nasal 44 ML BOT EA NARE PRN (21:43)
[2022-07-07 07:19] LABS: Anion Gap 11 mmol/L (10-20); BUN (Urea Nitrogen) 10 mg/dL (9.8-20.1); Calc. Creatinine Clearance 81 mL/min (70-130); Calcium 8.4 mg/dL (7.8-10.44); Carbon Dioxide 24 mmol/L (23-31); Chloride 98 mmol/L (98-107); Estimated GFR 77; Glucose 85 mg/dL (83-110); Potassium 3.4 mmol/L (3.5-5.1); Sodium 130 mmol/L (136-145)
[2022-07-07 07:31] LABS: Band 4 % (5-11); Eosinophils 1 % (0-10); Hemoglobin 12.6 g/dL (12.0-16.0); Lymphocytes 14 % (21-51); MDiff Complete? YES; Mean Corpuscular HGB CONC 34.1 g/dL (32.0-36.0); Mean Corpuscular Hemoglobin 29.1 pg (27.0-31.0); Mean Corpuscular Volume 85.4 fl (78.0-98.0); Mean Platelet Volume 9.1 fL (7.4-10.4); Monocytes 14 % (0-10); Neutrophil 59 % (42-75); Platelet Count 160 10x3/uL (130-400); Platelet Morphology Comment Appears Adequate; RBC Morphology Normal; Reactive Lymphocytes 8 % (0-10); Red Blood Cell (RBC) Count 4.33 mill/uL (4.20-5.40); White Blood Cell (WBC) Count 2.8 10x3/uL (4.8-10.8)
[2022-07-07] MEDS ORDERED: Potassium Chloride 20 MEQ TAB PO SCH (08:30)
[2022-07-07] MEDS: Ascorbic Acid 500 mg Chewable Tablet PO SCH (08:55)
[2022-07-07] MEDS: Ezetimibe 10 MG TAB PO SCH (08:56)
[2022-07-07] MEDS: Apixaban 5 MG TAB PO SCH (08:56)
[2022-07-07] MEDS: Fish Oil 1,000 MG CAP PO SCH (08:56)
[2022-07-07] MEDS: Clopidogrel Bisulfate 75 MG TAB PO SCH (08:57)
[2022-07-07] MEDS: Zinc Sulfate 220 MG CAP PO SCH (08:57)
[2022-07-08 05:39] LABS: Anion Gap 11 mmol/L (10-20); BUN (Urea Nitrogen) 6 mg/dL (9.8-20.1); Calc. Creatinine Clearance 85 mL/min (70-130); Calcium 8.7 mg/dL (7.8-10.44); Carbon Dioxide 24 mmol/L (23-31); Chloride 104 mmol/L (98-107); Estimated GFR 85; Glucose 91 mg/dL (83-110); Magnesium 1.9 mg/dL (1.6-2.6); Potassium 3.9 mmol/L (3.5-5.1); Sodium 135 mmol/L (136-145)
[2022-07-08 05:57] LABS: Band 1 % (5-11); Eosinophils 3 % (0-10); Hemoglobin 12.8 g/dL (12.0-16.0); Lymphocytes 39 % (21-51); MDiff Complete? YES; Mean Corpuscular HGB CONC 33.7 g/dL (32.0-36.0); Mean Corpuscular Volume 86.3 fl (78.0-98.0); Mean Platelet Volume 8.8 fL (7.4-10.4); Metamyelocyte 1 % (0-0); Monocytes 11 % (0-10); Neutrophil 45 % (42-75); Platelet Count 159 10x3/uL (130-400); Platelet Morphology Comment Appears Adequate; RBC Distribution Width 13.1 % (11.5-14.5); RBC Morphology Normal; Red Blood Cell (RBC) Count 4.41 mill/uL (4.20-5.40); White Blood Cell (WBC) Count 2.9 10x3/uL (4.8-10.8)
[2022-07-08] MEDS: Zinc Sulfate 220 MG CAP PO SCH (09:03)
[2022-07-08] MEDS: Clopidogrel Bisulfate 75 MG TAB PO SCH (09:03)
[2022-07-08] MEDS: Ezetimibe 10 MG TAB PO SCH (09:03)
[2022-07-08] MEDS: Fish Oil 1,000 MG CAP PO SCH (09:03)
[2022-07-08] MEDS: Ascorbic Acid 500 mg Chewable Tablet PO SCH (09:03)
[2022-07-08] MEDS: Ciprofloxacin Lactate/D5W 200 MG in Premix Bag 1 BAG IVPB SCH ×3 (09:05→21:35)
[2022-07-08 11:02] VITALS: BMI 28.8
[2022-07-09 06:31] LABS: Band 4 % (5-11); Lymphocytes 38 % (21-51); MDiff Complete? YES; Mean Corpuscular HGB CONC 33.9 g/dL (32.0-36.0); Mean Corpuscular Hemoglobin 29.2 pg (27.0-31.0); Mean Corpuscular Volume 86.1 fl (78.0-98.0); Mean Platelet Volume 9.2 fL (7.4-10.4); Monocytes 8 % (0-10); Neutrophil 42 % (42-75); Platelet Count 161 10x3/uL (130-400); Platelet Morphology Comment Appears Adequate; RBC Distribution Width 13.2 % (11.5-14.5); RBC Morphology Normal; Reactive Lymphocytes 8 % (0-10); Red Blood Cell (RBC) Count 4.46 mill/uL (4.20-5.40); White Blood Cell (WBC) Count 3.2 10x3/uL (4.8-10.8)
[2022-07-09 06:36] LABS: Anion Gap 12 mmol/L (10-20); BUN (Urea Nitrogen) 5 mg/dL (9.8-20.1); Calc. Creatinine Clearance 83 mL/min (70-130); Calcium 8.6 mg/dL (7.8-10.44); Carbon Dioxide 27 mmol/L (23-31); Chloride 101 mmol/L (98-107); Estimated GFR 81; Glucose 93 mg/dL (83-110); Potassium 3.6 mmol/L (3.5-5.1); Sodium 136 mmol/L (136-145)
[2022-07-09] MEDS: Ezetimibe 10 MG TAB PO SCH (10:00)
[2022-07-09] MEDS: Fish Oil 1,000 MG CAP PO SCH (10:00)
[2022-07-09] MEDS: Ascorbic Acid 500 mg Chewable Tablet PO SCH (10:00)
[2022-07-09] MEDS: Zinc Sulfate 220 MG CAP PO SCH (10:00)
[2022-07-09] MEDS: Clopidogrel Bisulfate 75 MG TAB PO SCH (10:00)
[2022-07-09] MEDS: Ciprofloxacin Lactate/D5W 200 MG in Premix Bag 1 BAG IVPB SCH ×4 (10:01→22:21)
[2022-07-09] MEDS ORDERED: Potassium Chloride 20 MEQ TAB PO SCH (13:15)
[2022-07-10] MEDS ORDERED: ceFAZolin 2 GM/Dextrose 50 ML 2 GM in Premix Bag 1 BAG IVPB SCH (03:30)
[2022-07-10] MEDS ORDERED: CEFAZOLIN 2 GM in Sodium Chloride 0.9% 100 ML IVPB SCH (07:00)
[2022-07-10] MEDS ORDERED: Potassium Chloride 20 MEQ TAB PO SCH (08:45)
[2022-07-10] MEDS: Ascorbic Acid 500 mg Chewable Tablet PO SCH (09:19)
[2022-07-10] MEDS: Ciprofloxacin Lactate/D5W 200 MG in Premix Bag 1 BAG IVPB SCH ×4 (09:20→21:20)
[2022-07-10] MEDS: Ezetimibe 10 MG TAB PO SCH (09:20)
[2022-07-10] MEDS: Fish Oil 1,000 MG CAP PO SCH (09:20)
[2022-07-10] MEDS: Zinc Sulfate 220 MG CAP PO SCH (09:21)
[2022-07-10] MEDS ORDERED: Gentamicin 80 MG/2 ML VIAL ONE (14:34)
[2022-07-10] MEDS ORDERED: CEFAZOLIN 2 GM VIAL ONE (14:34)
[2022-07-10] MEDS ORDERED: Lidocaine 1% (PF) 30 ML VIAL ONE (14:34)
[2022-07-10] MEDS ORDERED: CEFAZOLIN 1 GM VIAL ONE ×3 (14:34→14:36)
[2022-07-10] MEDS ORDERED: Midazolam HCl 2 mg/2 ml Vial ONE (15:32)
[2022-07-10] MEDS: Dronedarone HCl 400 MG TAB PO SCH (17:33)
[2022-07-11 05:33] LABS: Anion Gap 11 mmol/L (10-20); BUN (Urea Nitrogen) 7 mg/dL (9.8-20.1); Calc. Creatinine Clearance 90 mL/min (70-130); Calcium 8.7 mg/dL (7.8-10.44); Carbon Dioxide 23 mmol/L (23-31); Chloride 106 mmol/L (98-107); Estimated GFR 90; Glucose 101 mg/dL (83-110); Potassium 3.8 mmol/L (3.5-5.1); Sodium 136 mmol/L (136-145)
[2022-07-11] MEDS: Ascorbic Acid 500 mg Chewable Tablet PO SCH (09:57)
[2022-07-11] MEDS: Dronedarone HCl 400 MG TAB PO SCH (09:57)
[2022-07-11] MEDS: Ciprofloxacin Lactate/D5W 200 MG in Premix Bag 1 BAG IVPB SCH ×2 (09:57→10:57)
[2022-07-11] MEDS: Ezetimibe 10 MG TAB PO SCH (09:58)
[2022-07-11] MEDS: Fish Oil 1,000 MG CAP PO SCH (09:58)
[2022-07-11] MEDS: Zinc Sulfate 220 MG CAP PO SCH (09:59)
[2022-07-11 12:49] VITALS: BP 139/74; TEMP 97.7
== END 2022-07-11 15:55 | disposition home or self-care (01) | DRG 242 ==
LOC: ERS 11:41 → ERHOLD 13:36 → 2SW 19:09 → OBSVTOIN 07-08 14:51
PROVIDERS: ADMIT Internal Medicine; ATTEND Internal Medicine
PROC: 8E0ZXY6 Isolation (ICD-10-PCS; 2022-07-06)
PROC: 0JH606Z Insertion of Pacemaker, Dual Chamber into Chest Subcutaneous Tissue and Fascia, Open Approach (ICD-10-PCS; principal; 2022-07-10)
PROC: 02H63JZ Insertion of Pacemaker Lead into Right Atrium, Percutaneous Approach (ICD-10-PCS; 2022-07-10)
PROC: 02HK3JZ Insertion of Pacemaker Lead into Right Ventricle, Percutaneous Approach (ICD-10-PCS; 2022-07-10)
PROC: 0JPT02Z Removal of Monitoring Device from Trunk Subcutaneous Tissue and Fascia, Open Approach (ICD-10-PCS; 2022-07-10)
DX: I49.5 Sick sinus syndrome (principal); U07.1 COVID-19; I50.32 Chronic diastolic (congestive) heart failure; N39.0 Urinary tract infection, site not specified; I25.10 Atherosclerotic heart disease of native coronary artery without angina pectoris; E78.5 Hyperlipidemia, unspecified; I11.0 Hypertensive heart disease with heart failure; Z96.653 Presence of artificial knee joint, bilateral; I48.0 Paroxysmal atrial fibrillation; I95.1 Orthostatic hypotension; Z95.1 Presence of aortocoronary bypass graft; Z88.8 Allergy status to other drugs, medicaments and biological substances; Z79.899 Other long term (current) drug therapy; Z79.02 Long term (current) use of antithrombotics/antiplatelets; Z79.01 Long term (current) use of anticoagulants; Z90.49 Acquired absence of other specified parts of digestive tract; Z90.710 Acquired absence of both cervix and uterus; Z90.10 Acquired absence of unspecified breast and nipple; Z98.890 Other specified postprocedural states
CPT/HCPCS: 33208; 33286; 36415; 71045; 80048; 80053; 81001; 83605; 83735; 83880; 84484; 85025; 93005; 93010; 93306; 96372; 96374; 96375; 96376; 99152; 99153; C1785; C1898; G0378; J0461; J0690; J0744; J1580; J1650; J2001; J2250

== ENCOUNTER 2024-03-22 13:52 | Observation (INO) | payer OTHER ==
[2024-03-22] MEDS ORDERED: FLU (Fluad Triv) TS24-25 (65UP)/MF59C/PF 45 MCG/0.5 ML Syringe IM ONE (16:30)
[2024-03-22] MEDS ORDERED: Calcium Carbonate 500 MG ChewTAB PO PRN (17:46)
[2024-03-22] MEDS ORDERED: Senokot S 8.6-50 MG TAB PO PRN (17:46)
[2024-03-22] MEDS ORDERED: Acetaminophen 650 MG Suppository PR PRN (17:46)
[2024-03-22] MEDS: Acetaminophen 325 MG TAB PO SCH (18:00)
[2024-03-22 19:00] LABS: Troponin I Less than 0.010 ng/mL (< 0.028)
[2024-03-22] MEDS: Magnesium 2 GM/50 ML(in water) 2 GM in Premix 1 BAG IVPB SCH (22:24)
[2024-03-22] MEDS: Famotidine 20 MG TAB PO SCH (22:25)
[2024-03-23 01:49] LABS: Troponin I Less than 0.010 ng/mL (< 0.028)
[2024-03-23 04:41] LABS: #Basophils Less than 0.03 10x3/uL (0.0-0.2); %Basophils 0.3 % (0.0-1.0); %Eosinophils 2.5 % (0.0-10.0); %Lymphocytes 19.6 % (21.0-51.0); %Monocytes 12.6 % (0.0-10.0); %Neutrophils 64.5 % (42.0-75.0); Hematocrit 40.3 % (36.0-47.0); Hemoglobin 13.6 g/dL (12.0-16.0); Mean Corpuscular HGB CONC 33.7 g/dL (32.0-36.0); Mean Corpuscular Hemoglobin 28.1 pg (27.0-31.0); Mean Corpuscular Volume 83.3 fL (78.0-98.0); Mean Platelet Volume 10.9 fL (7.4-10.4); Platelet Count 232 10x3/uL (130-400); RBC Distribution Width 13.7 % (11.5-14.5); Red Blood Cell (RBC) Count 4.84 mill/uL (4.20-5.40)
[2024-03-23 05:03] LABS: Anion Gap 10 mmol/L (10-20); BUN (Urea Nitrogen) 8 mg/dL (9.8-20.1); Calc. Creatinine Clearance 82 mL/min (70-130); Calcium 8.8 mg/dL (7.8-10.44); Carbon Dioxide 23 mmol/L (23-31); Chloride 107 mmol/L (98-107); Estimated GFR 78; Glucose 113 mg/dL (83-110); Potassium 3.8 mmol/L (3.5-5.1); Sodium 136 mmol/L (136-145)
[2024-03-23] MEDS: Isosorbide Mononitrate 60 MG ER.TAB PO SCH (10:19)
[2024-03-23] MEDS: Clopidogrel Bisulfate 75 MG TAB PO SCH (10:21)
[2024-03-23] MEDS: Apixaban 5 MG TAB PO SCH (10:21)
[2024-03-23] MEDS: Isosorbide Mononitrate 30 MG ER.TAB PO SCH (11:40)
[2024-03-23 19:56] VITALS: BP 144/70; TEMP 97.5
[2024-03-23] MEDS ORDERED: Ranolazine ER 500 MG TAB PO SCH (21:00)
[2024-03-23] MEDS ORDERED: Apixaban 5 MG TAB PO SCH (21:00)
[2024-03-24] MEDS ORDERED: Clopidogrel Bisulfate 75 MG TAB PO SCH (09:00)
[2024-03-24] MEDS ORDERED: Ezetimibe 10 MG TAB PO SCH (09:00)
[2024-03-24] MEDS ORDERED: Isosorbide Mononitrate 60 MG ER.TAB PO SCH (09:00)
[2024-03-29] MEDS ORDERED: Evolocumab [Repatha Sureclick] 140 MG/ML Pen.Injctr SC SCH (09:00)
== END 2024-03-23 19:50 | disposition home or self-care (01) ==
LOC: 2NO 15:47
PROVIDERS: ADMIT Internal Medicine; ATTEND Internal Medicine
DX: R55 Syncope and collapse (principal); E78.5 Hyperlipidemia, unspecified; I48.0 Paroxysmal atrial fibrillation; I11.0 Hypertensive heart disease with heart failure; I50.32 Chronic diastolic (congestive) heart failure; R00.1 Bradycardia, unspecified; E87.6 Hypokalemia; F03.90 Unspecified dementia, unspecified severity, without behavioral disturbance, psychotic disturbance, mood disturbance, and anxiety; Z90.710 Acquired absence of both cervix and uterus; Z90.49 Acquired absence of other specified parts of digestive tract; Z90.12 Acquired absence of left breast and nipple; Z88.8 Allergy status to other drugs, medicaments and biological substances; Z95.1 Presence of aortocoronary bypass graft; Z96.653 Presence of artificial knee joint, bilateral; Z98.890 Other specified postprocedural states; Z79.899 Other long term (current) drug therapy; Z95.0 Presence of cardiac pacemaker; Z79.02 Long term (current) use of antithrombotics/antiplatelets; Z79.01 Long term (current) use of anticoagulants
CPT/HCPCS: 80048; 84484 ×2; 85025; 93005; 96374; G0378 ×2; J3475; 36415; 93010

== ENCOUNTER 2025-06-02 21:38 | Inpatient (IN) | payer OTHER ==
[2025-06-02] MEDS ORDERED: Electrolyte Replacement Protocol 1 EACH FS SCH (23:45)
[2025-06-02 23:53] VITALS: BMI 47.8
[2025-06-02] MEDS ORDERED: Calcium Carbonate 500 MG ChewTAB PO PRN (23:55)
[2025-06-02] MEDS ORDERED: Ondansetron PF 4 MG/2 ML Vial IVP PRN (23:55)
[2025-06-02] MEDS ORDERED: Acetaminophen 325 MG TAB PO PRN (23:55)
[2025-06-02] MEDS ORDERED: Senokot S 8.6-50 MG TAB PO PRN (23:55)
[2025-06-03] MEDS ORDERED: PHOS-NAK 1 PKT PACK PO PRN (00:30)
[2025-06-03] MEDS ORDERED: Magnesium Sulfate In Water 4 GM in Premix 1 BAG IVPB PRN (00:30)
[2025-06-03] MEDS ORDERED: Potassium Chloride 20 MEQ in Premix 1 BAG IVPB PRN (00:30)
[2025-06-03 05:03] LABS: ALT (SGPT) 31 U/L (Less than 34); AST (SGOT) 20 U/L (11-34); Albumin 2.9 g/dL (3.1-4.5); Alkaline Phosphatase 61 U/L (40-110); Anion Gap 14 mmol/L (10-20); BUN (Urea Nitrogen) 23 mg/dL (9.8-20.1); Bilirubin, Total 0.5 mg/dL (0.3-1.2); Calc. Creatinine Clearance 144 mL/min (70-130); Calcium 8.2 mg/dL (7.8-10.44); Carbon Dioxide 20 mmol/L (23-31); Chloride 109 mmol/L (98-107); Globulin 2.8 g/dL (2.4-3.5); Glucose 78 mg/dL (83-110); Magnesium 2.3 mg/dL (1.6-2.6); Potassium 4.0 mmol/L (3.5-5.1); Sodium 139 mmol/L (136-145)
[2025-06-03 05:29] LABS: Hematocrit 43.1 % (36.0-47.0); Hemoglobin 13.5 g/dL (12.0-16.0); Mean Corpuscular Hemoglobin 27.4 pg (27.0-31.0); Mean Corpuscular Volume 87.4 fL (78.0-98.0); Platelet Count 219 10x3/uL (130-400); Red Blood Cell (RBC) Count 4.93 mill/uL (4.20-5.40); White Blood Cell (WBC) Count 8.99 10x3/uL (4.8-10.8)
[2025-06-03 06:10] LABS: Platelet Adequacy Comment Platelets Normal; RBC Morphology Within Normal Limits; Smudge Cells 18.8 %
[2025-06-03 09:12] LABS: Burr Cells MODERATE= 6-15 cells HPF (0-1); Macrocytosis SLIGHT = 6-15 cells HPF (0-5); Polychromasia SLIGHT = 2-3 cells HPF (0-2)
[2025-06-03] MEDS: Metoprolol Succinate XL 25 MG ER.TAB PO SCH (09:13)
[2025-06-03] MEDS: Ezetimibe 10 MG TAB PO SCH (09:13)
[2025-06-03] MEDS: Isosorbide Mononitrate 60 MG ER.TAB PO SCH (09:13)
[2025-06-03] MEDS: Apixaban 2.5 MG TAB PO SCH (09:13)
[2025-06-03] MEDS: Lisinopril 20 MG TAB PO SCH (09:14)
[2025-06-03] MEDS: cefTRIAXone\\ROCEPHIN 1 GM in Sodium Chloride 0.9% 100 ML IVPB SCH (09:35)
[2025-06-04 05:31] LABS: Hematocrit 43.6 % (36.0-47.0); Hemoglobin 14.1 g/dL (12.0-16.0); Mean Corpuscular Hemoglobin 28.1 pg (27.0-31.0); Mean Corpuscular Volume 86.9 fL (78.0-98.0); Platelet Count 200 10x3/uL (130-400); Red Blood Cell (RBC) Count 5.02 mill/uL (4.20-5.40); White Blood Cell (WBC) Count 6.14 10x3/uL (4.8-10.8)
[2025-06-04 05:32] LABS: ALT (SGPT) 29 U/L (Less than 34); AST (SGOT) 22 U/L (11-34); Albumin 3.0 g/dL (3.1-4.5); Alkaline Phosphatase 57 U/L (40-110); Anion Gap 15 mmol/L (10-20); BUN (Urea Nitrogen) 15 mg/dL (9.8-20.1); Bilirubin, Total 0.4 mg/dL (0.3-1.2); Calc. Creatinine Clearance 125 mL/min (70-130); Calcium 8.5 mg/dL (7.8-10.44); Carbon Dioxide 20 mmol/L (23-31); Chloride 107 mmol/L (98-107); Globulin 3.0 g/dL (2.4-3.5); Glucose 90 mg/dL (83-110); Magnesium 2.1 mg/dL (1.6-2.6); Potassium 4.3 mmol/L (3.5-5.1); Sodium 138 mmol/L (136-145)
[2025-06-04 05:54] LABS: Platelet Adequacy Comment Platelets Normal; Poikilocytosis MARKED = >30 cells HPF (0-5)
[2025-06-04 11:40] VITALS: BP 103/58; TEMP 97.8
== END 2025-06-04 13:30 | disposition home or self-care (01) | DRG 689 ==
LOC: 2NO 23:11
PROVIDERS: ADMIT Internal Medicine; ATTEND Internal Medicine
DX: N39.0 Urinary tract infection, site not specified (principal); G93.41 Metabolic encephalopathy; I50.32 Chronic diastolic (congestive) heart failure; E78.5 Hyperlipidemia, unspecified; Z88.8 Allergy status to other drugs, medicaments and biological substances; Z98.890 Other specified postprocedural states; I25.10 Atherosclerotic heart disease of native coronary artery without angina pectoris; I48.91 Unspecified atrial fibrillation; Z95.1 Presence of aortocoronary bypass graft; F03.90 Unspecified dementia, unspecified severity, without behavioral disturbance, psychotic disturbance, mood disturbance, and anxiety; I11.0 Hypertensive heart disease with heart failure
CPT/HCPCS: 36415; 80053; 83735; 84100; 84145; 85025; J0696; J7030